=== PATIENT | male | born 1955 | race African-American/Black ===

== ENCOUNTER 2017-09-01 15:11 | Inpatient (IN) | payer OTHER ==
[2017-09-01 15:58] LABS: Mean Corpuscular HGB Conc 33 % (32-34); Mean Corpuscular Hemoglobin 27 pg (28-32); Mean Corpuscular Volume 83 fl (84-94); Platelet Count 645 K/mm3 (140-440); Red Blood Count 2.07 M/mm3 (3.65-5.03); Red Cell Distribution Width 19.5 % (13.2-15.2)
[2017-09-01 16:05] LABS: Hematocrit 17.1 % (35.5-45.6); Hemoglobin 5.6 gm/dl (11.8-15.2)
[2017-09-01 16:08] LABS: INR 0.95 (0.87-1.13)
[2017-09-01 16:09] LABS: Partial Thromboplastin Time 37.7 Sec. (24.2-36.6)
[2017-09-01 16:16] LABS: BUN/Creatinine Ratio 33; Blood Urea Nitrogen 56 mg/dL (9-20); Calcium 9.8 mg/dL (8.4-10.2); Hemolysis Index 0
[2017-09-01 17:10] LABS: Basophils % (Manual) 0 % (0.0-1.8); RBC Morphology Normal; Total Cells Counted 100
--- NOTE | 2017-09-01 17:12 | Emergency Department Report ---
ED Neuro Deficit HPI - General Chief Complaint: Neuro Symptoms/Deficit Stated Complaint: NUMBNESS/LEFT SIDE/VOICE CHANGE Time Seen by Provider: 09/01/17 17:00 Source: patient, family Mode of arrival: Ambulatory Limitations: Language Barrier - History of Present Illness Initial Comments: Patient c/o left sided weakness and numbness x 10 days. -: days(s) (10) Location: left face, left arm, left leg Presenting Symptoms: Present: Weak/Paralyzed One Side History of same: No Place: home Severity: mild Quality: weak, numb Improves With: none Worsens With: none On Anticoagulants: No Context: gradual onset Associated Symptoms: denies other symptoms - Related Data Allergies/Adverse Reactions: Allergies Allergy/AdvReac Type Severity Reaction Status Date / Time No Known Allergies Allergy Unverified 09/01/17 15:15 ED Review of Systems ROS: Stated complaint: NUMBNESS/LEFT SIDE/VOICE CHANGE Other details as noted in HPI Comment: All other systems reviewed and negative Constitutional: denies: chills, fever Eyes: denies: vision change ENT: denies: ear pain, dental pain Respiratory: SOB with exertion. denies: cough Cardiovascular: denies: chest pain, palpitations Endocrine: no symptoms reported Gastrointestinal: denies: abdominal pain, nausea, vomiting, diarrhea Genitourinary: denies: urgency, dysuria, frequency Musculoskeletal: arthralgia. denies: back pain, joint swelling Skin: denies: rash Neurological: weakness, numbness, paresthesias, abnormal gait. denies: headache Psychiatric: denies: anxiety, depression Hematological/Lymphatic: easy bleeding (Nose bleeds intermittently.). denies: easy bruising ED Past Medical Hx - Past Medical History Previous Medical History?: Yes Hx Hypertension: Yes Additional medical history: Epigastric pain, Barretts esophagus, H-pylori - Surgical History Past Surgical History?: No - Social History Smoking Status: Current Every Day Smoker Substance Use Type: Alcohol ED Neuro Physical Exam - General Limitations: Language Barrier General appearance: alert, in no apparent distress Suspected Stroke: Yes - Head Head exam: Present: atraumatic, normocephalic, normal inspection - Eye Eye exam: Present: normal appearance, PERRL, EOMI Pupils: Present: normal accommodation - ENT ENT exam: Present: normal exam, normal orophraynx, mucous membranes moist - Neck Neck exam: Present: normal inspection, full ROM. Absent: tenderness - Respiratory Respiratory exam: Present: normal lung sounds bilaterally. Absent: respiratory distress - Cardiovascular Cardiovascular Exam: Present: regular rate, normal rhythm, normal heart sounds - GI/Abdominal GI/Abdominal exam: Present: soft, normal bowel sounds. Absent: tenderness, guarding, rebound - Rectal Rectal exam: Present: heme (-) stool, other (Female Charperone Ms. Meyers,RN was present in the room during the examination.). Absent: black stool, bloody stool , hemorrhoids, tenderness - Extremities Exam Extremities exam: Present: normal inspection, full ROM, normal capillary refill - Back Exam Back exam: Present: normal inspection, full ROM - Neurological Exam Neurological exam: Present: alert, oriented X3, CN II-XII intact, abnormal gait - NIHSS Assessment Interval: Baseline 1a. Level of Consciousness: alert 1b. LOC Questions: answers correctly 1c. LOC Commands: performs tasks correctly 2. Best Gaze: normal 3. Visual: no visual loss 4. Facial Palsy: normal symmetrical movement 5b. Motor Arm Right: no drift 5a. Motor Arm Left: no drift 6a. Motor Leg Left: no drift 6b. Motor Leg Right: no drift 7. Limb Ataxia: absent 8. Sensory: mild/moderate sensory loss 9. Best Language: no aphasia 10. Dysarthria: normal 11. Extinction/Inattention: no abnormality Total Score: 1 Stroke Severity: Minor Stroke ED Course Vital Signs 09/01/17 09/01/17 09/01/17 15:15 16:21 16:52 Temperature 98.3 F Pulse Rate 116 H 85 Respiratory 18 19 19 Rate Blood Pressure 142/79 Blood Pressure 178/88 [Right] O2 Sat by Pulse 100 100 Oximetry 09/01/17 09/01/17 09/01/17 17:00 18:00 19:00 Temperature Pulse Rate 94 H 92 H 93 H Respiratory 16 18 18 Rate Blood Pressure Blood Pressure 180/95 173/96 167/90 [Right] O2 Sat by Pulse 98 97 97 Oximetry 09/01/17 09/01/17 20:49 20:52 Temperature Pulse Rate 100 H 100 H Respiratory 18 Rate Blood Pressure 167/88 Blood Pressure 167/88 [Right] O2 Sat by Pulse 97 Oximetry - Reevaluation(s) Reevaluation #1: 09/01/17 20:13 I consulted the tele neurogist doctor windows application packager. He recommend admission for full stroke workup including MRI of the brain without contrast. Patient care was discussed with Dr Ballard the hospitalist windows application packager. He will admit patient for further evaluation and management. - Lab Data Result diagrams: 09/01/17 15:34 09/01/17 15:34 Lab Results 09/01/17 09/01/17 09/01/17 Range/Units 15:34 15:34 15:34 WBC 7.5 (4.5-11.0) K/mm3 RBC 2.07 L (3.65-5.03) M/mm3 Hgb 5.6 L* (11.8-15.2) gm/dl Hct 17.1 L* (35.5-45.6) % MCV 83 L (84-94) fl MCH 27 L (28-32) pg MCHC 33 (32-34) % RDW 19.5 H (13.2-15.2) % Plt Count 645 H (140-440) K/mm3 Add Manual Diff Complete Total Counted 100 Seg Neuts % (Manual) 66.0 (40.0-70.0) % Band Neutrophils % 0 % Lymphocytes % (Manual) 17.0 (13.4-35.0) % Reactive Lymphs % (Man) 0 % Monocytes % (Manual) 16.0 H (0.0-7.3) % Eosinophils % (Manual) 1.0 (0.0-4.3) % Basophils % (Manual) 0 (0.0-1.8) % Metamyelocytes % 0 % Myelocytes % 0 % Promyelocytes % 0 % Blast Cells % 0 % Nucleated RBC % Not Reportable Seg Neutrophils # Man 5.0 (1.8-7.7) K/mm3 Band Neutrophils # 0.0 K/mm3 Lymphocytes # (Manual) 1.3 (1.2-5.4) K/mm3 Abs React Lymphs (Man) 0.0 K/mm3 Monocytes # (Manual) 1.2 H (0.0-0.8) K/mm3 Eosinophils # (Manual) 0.1 (0.0-0.4) K/mm3 Basophils # (Manual) 0.0 (0.0-0.1) K/mm3 Metamyelocytes # 0.0 K/mm3 Myelocytes # 0.0 K/mm3 Promyelocytes # 0.0 K/mm3 Blast Cells # 0.0 K/mm3 WBC Morphology Not Reportable Hypersegmented Neuts Not Reportable Hyposegmented Neuts Not Reportable Hypogranular Neuts Not Reportable Smudge Cells Not Reportable Toxic Granulation Not Reportable Toxic Vacuolation Not Reportable Dohle Bodies Not Reportable Pelger-Huet Anomaly Not Reportable Christina Rods Not Reportable Platelet Estimate Not Reportable Clumped Platelets Not Reportable Plt Clumps, EDTA Not Reportable Large Platelets Not Reportable Giant Platelets Not Reportable Platelet Satelliting Not Reportable Plt Morphology Comment Not Reportable RBC Morphology Normal Dimorphic RBCs Not Reportable Polychromasia Not Reportable Hypochromasia Not Reportable Poikilocytosis Not Reportable Anisocytosis Not Reportable Microcytosis Not Reportable Macrocytosis Not Reportable Spherocytes Not Reportable Pappenheimer Bodies Not Reportable Sickle Cells Not Reportable Target Cells Not Reportable Tear Drop Cells Not Reportable Ovalocytes Not Reportable Helmet Cells Not Reportable [place] Bodies Not Reportable [place] Rings Not Reportable Jennifer Cells Not Reportable Bite Cells Not Reportable Crenated Cell Not Reportable Elliptocytes Not Reportable Acanthocytes (Spur) Not Reportable Rouleaux Not Reportable Hemoglobin C Crystals Not Reportable Schistocytes Not Reportable Malaria parasites Not Reportable Bogdan Bodies Not Reportable Hem Pathologist Commnt No PT 13.2 (12.2-14.9) Sec. INR 0.95 (0.87-1.13) APTT 37.7 H (24.2-36.6) Sec. Thrombin Time (15.1-19.6) Sec. Sodium 138 (137-145) mmol/L Potassium 5.1 H (3.6-5.0) mmol/L Chloride 101.3 (98-107) mmol/L Carbon Dioxide 17 L (22-30) mmol/L Anion Gap 25 mmol/L BUN 56 H (9-20) mg/dL Creatinine 1.7 H (0.8-1.5) mg/dL Estimated GFR 41 ml/min BUN/Creatinine Ratio 33 % Glucose 137 H (75-100) mg/dL POC Glucose (70-105) Calcium 9.8 (8.4-10.2) mg/dL Total Bilirubin (0.1-1.2) mg/dL Direct Bilirubin (0-0.2) mg/dL Indirect Bilirubin mg/dL AST (5-40) units/L ALT (7-56) units/L Alkaline Phosphatase (35-129) units/L Troponin T < 0.010 (0.00-0.029) ng/mL Total Protein (6.3-8.2) g/dL Albumin (3.9-5) g/dL Albumin/Globulin Ratio % Blood Type Antibody Screen 09/01/17 09/01/17 09/01/17 Range/Units 15:34 16:39 17:29 WBC (4.5-11.0) K/mm3 RBC (3.65-5.03) M/mm3 Hgb (11.8-15.2) gm/dl Hct (35.5-45.6) % MCV (84-94) fl MCH (28-32) pg MCHC (32-34) % RDW (13.2-15.2) % Plt Count (140-440) K/mm3 Add Manual Diff Total Counted Seg Neuts % (Manual) (40.0-70.0) % Band Neutrophils % % Lymphocytes % (Manual) (13.4-35.0) % Reactive Lymphs % (Man) % Monocytes % (Manual) (0.0-7.3) % Eosinophils % (Manual) (0.0-4.3) % Basophils % (Manual) (0.0-1.8) % Metamyelocytes % % Myelocytes % % Promyelocytes % % Blast Cells % % Nucleated RBC % Seg Neutrophils # Man (1.8-7.7) K/mm3 Band Neutrophils # K/mm3 Lymphocytes # (Manual) (1.2-5.4) K/mm3 Abs React Lymphs (Man) K/mm3 Monocytes # (Manual) (0.0-0.8) K/mm3 Eosinophils # (Manual) (0.0-0.4) K/mm3 Basophils # (Manual) (0.0-0.1) K/mm3 Metamyelocytes # K/mm3 Myelocytes # K/mm3 Promyelocytes # K/mm3 Blast Cells # K/mm3 WBC Morphology Hypersegmented Neuts Hyposegmented Neuts Hypogranular Neuts Smudge Cells Toxic Granulation Toxic Vacuolation Dohle Bodies Pelger-Huet Anomaly Christina Rods Platelet Estimate Clumped Platelets Plt Clumps, EDTA Large Platelets Giant Platelets Platelet Satelliting Plt Morphology Comment RBC Morphology Dimorphic RBCs Polychromasia Hypochromasia Poikilocytosis Anisocytosis Microcytosis Macrocytosis Spherocytes Pappenheimer Bodies Sickle Cells Target Cells Tear Drop Cells Ovalocytes Helmet Cells [place] Bodies [place] Rings Jennifer Cells Bite Cells Crenated Cell Elliptocytes Acanthocytes (Spur) Rouleaux Hemoglobin C Crystals Schistocytes Malaria parasites Bogdan Bodies Hem Pathologist Commnt PT (12.2-14.9) Sec. INR (0.87-1.13) APTT (24.2-36.6) Sec. Thrombin Time 15.0 L (15.1-19.6) Sec. Sodium (137-145) mmol/L Potassium (3.6-5.0) mmol/L Chloride (98-107) mmol/L Carbon Dioxide (22-30) mmol/L Anion Gap mmol/L BUN (9-20) mg/dL Creatinine (0.8-1.5) mg/dL Estimated GFR ml/min BUN/Creatinine Ratio % Glucose (75-100) mg/dL POC Glucose 132 H (70-105) Calcium (8.4-10.2) mg/dL Total Bilirubin < 0.20 (0.1-1.2) mg/dL Direct Bilirubin < 0.2 (0-0.2) mg/dL Indirect Bilirubin 0.0 mg/dL AST 17 (5-40) units/L ALT 10 (7-56) units/L Alkaline Phosphatase 113 (35-129) units/L Troponin T (0.00-0.029) ng/mL Total Protein 7.8 (6.3-8.2) g/dL Albumin 4.0 (3.9-5) g/dL Albumin/Globulin Ratio 1.1 % Blood Type Antibody Screen 09/01/17 Range/Units 17:29 WBC (4.5-11.0) K/mm3 RBC (3.65-5.03) M/mm3 Hgb (11.8-15.2) gm/dl Hct (35.5-45.6) % MCV (84-94) fl MCH (28-32) pg MCHC (32-34) % RDW (13.2-15.2) % Plt Count (140-440) K/mm3 Add Manual Diff Total Counted Seg Neuts % (Manual) (40.0-70.0) % Band Neutrophils % % Lymphocytes % (Manual) (13.4-35.0) % Reactive Lymphs % (Man) % Monocytes % (Manual) (0.0-7.3) % Eosinophils % (Manual) (0.0-4.3) % Basophils % (Manual) (0.0-1.8) % Metamyelocytes % % Myelocytes % % Promyelocytes % % Blast Cells % % Nucleated RBC % Seg Neutrophils # Man (1.8-7.7) K/mm3 Band Neutrophils # K/mm3 Lymphocytes # (Manual) (1.2-5.4) K/mm3 Abs React Lymphs (Man) K/mm3 Monocytes # (Manual) (0.0-0.8) K/mm3 Eosinophils # (Manual) (0.0-0.4) K/mm3 Basophils # (Manual) (0.0-0.1) K/mm3 Metamyelocytes # K/mm3 Myelocytes # K/mm3 Promyelocytes # K/mm3 Blast Cells # K/mm3 WBC Morphology Hypersegmented Neuts Hyposegmented Neuts Hypogranular Neuts Smudge Cells Toxic Granulation Toxic Vacuolation Dohle Bodies Pelger-Huet Anomaly Christina Rods Platelet Estimate Clumped Platelets Plt Clumps, EDTA Large Platelets Giant Platelets Platelet Satelliting Plt Morphology Comment RBC Morphology Dimorphic RBCs Polychromasia Hypochromasia Poikilocytosis Anisocytosis Microcytosis Macrocytosis Spherocytes Pappenheimer Bodies Sickle Cells Target Cells Tear Drop Cells Ovalocytes Helmet Cells [place] Bodies [place] Rings Jennifer Cells Bite Cells Crenated Cell Elliptocytes Acanthocytes (Spur) Rouleaux Hemoglobin C Crystals Schistocytes Malaria parasites Bogdan Bodies Hem Pathologist Commnt PT (12.2-14.9) Sec. INR (0.87-1.13) APTT (24.2-36.6) Sec. Thrombin Time (15.1-19.6) Sec. Sodium (137-145) mmol/L Potassium (3.6-5.0) mmol/L Chloride (98-107) mmol/L Carbon Dioxide (22-30) mmol/L Anion Gap mmol/L BUN (9-20) mg/dL Creatinine (0.8-1.5) mg/dL Estimated GFR ml/min BUN/Creatinine Ratio % Glucose (75-100) mg/dL POC Glucose (70-105) Calcium (8.4-10.2) mg/dL Total Bilirubin (0.1-1.2) mg/dL Direct Bilirubin (0-0.2) mg/dL Indirect Bilirubin mg/dL AST (5-40) units/L ALT (7-56) units/L Alkaline Phosphatase (35-129) units/L Troponin T (0.00-0.029) ng/mL Total Protein (6.3-8.2) g/dL Albumin (3.9-5) g/dL Albumin/Globulin Ratio % Blood Type O POSITIVE Antibody Screen Negative - Radiology Data Radiology results: report reviewed, image reviewed Critical Care Time: Yes Critical care time in (mins) excluding proc time.: 50 Critical care attestation.: If time is entered above; I have spent that time in minutes in the direct care of this critically ill patient, excluding procedure time. ED Disposition Clinical Impression: Symptomatic anemia, Left-sided weakness, Left sided numbness Disposition: OP ADMIT IP TO THIS HOSP Is pt being admited?: Yes Does the pt Need Aspirin: Yes Condition: Stable
--- NOTE | 2017-09-01 17:21 | Cat Scan Report ---
FINAL REPORT PROCEDURE: CT HEAD/BRAIN WO CON TECHNIQUE: Computerized tomography of the head was performed without contrast material. DLP 920.48 mGy-cm. HISTORY: Left arm numbness. Unsteady gait and confusion. COMPARISON: No prior studies are available for comparison. FINDINGS: Skull and scalp: Normal. Paranasal sinuses: Near complete opacification of the right maxillary sinus. Scattered ethmoid sinusitis. Ventricles and subarachnoid spaces: Normal. Cerebrum: No evidence of hemorrhage, acute infarction or mass. Mild atrophy. Subtle periventricular white matter low attenuation. Subcentimeter areas of low attenuation in the bilateral basal ganglia and thalami, right greater than left. Possible subtle more focal area of low attenuation in the right middle cerebral peduncle. Bilateral basal ganglia calcifications. Cerebellum and brainstem: No evidence of hemorrhage, acute infarction or mass. Possible subtle area of low attenuation in the right middle cerebellar peduncle. Vasculature: Mild atherosclerosis. Comments: None. IMPRESSION: Atrophy. White matter changes likely chronic small vessel ischemic change. Areas of low attenuation in the basal ganglia likely lacunes. Subtle area of low attenuation in the right middle cerebellar peduncle. This could be artifact. Recommend MRI of the brain for further characterization if there is continued clinical concern for subtle superimposed acute process (cannot be entirely excluded) and if patient has no contraindication to MRI. Sinusitis, with near complete opacification of the right maxillary sinus.
[2017-09-01 18:22] LABS: Alanine Aminotransferase 10 units/L (7-56)
[2017-09-01 18:30] LABS: Bilirubin,Direct < 0.2 mg/dL (0-0.2)
[2017-09-01] MEDS ORDERED: LOPRESSOR PO ONE (18:55)
--- NOTE | 2017-09-01 19:13 | History and Physical Report ---
History of Present Illness Chief complaint: weakness History of present illness: 61 YO Male with HTN, Malnutrition, Krish's Eshphagus, Nicotine Dependence presents to ED for evaluation. Pt is unable to provide detailed history. History taken from ED staff, and family members at bedside during exam and interview. As per family, the patient has experienced Left side weakness, confusion, slurred speech over the past 10 days with persistent symptoms over the same time frame. No reports of fever, chills, CP, Palpitations, Falls, Trauma, BRBPR, Seizure, productive cough, skin rash, or recent in contacts. Pt seen and evaluated in ED and found to have symptoms of acute stroke. Code stroke was called. Teleneurology consulted. Pt is outside therapeutic window for TPA/ Pt admitted to telemetry and initiates on CVA protocol. Past History Past Medical History: hypertension, other (BArrrets Esophagus) Past Surgical History: No surgical history, Other (reviewed) Social history: single, smoking Family history: hypertension Medications and Allergies Allergies Allergy/AdvReac Type Severity Reaction Status Date / Time No Known Allergies Allergy Unverified 09/01/17 15:15 Review of Systems ROS unobtainable: due to mental status Exam - Constitutional Vitals: Temp Pulse Resp BP Pulse Ox 98.3 F 85 19 178/88 100 09/01/17 15:15 09/01/17 16:21 09/01/17 16:52 09/01/17 16:21 09/01/17 16:21 General appearance: Present: mild distress - EENT Eyes: Present: PERRL ENT: hearing intact, clear oral mucosa - Neck Neck: Present: supple, normal ROM - Respiratory Respiratory effort: normal Respiratory: bilateral: CTA - Cardiovascular Heart Sounds: Present: S1 & S2. Absent: rub, click - Extremities Extremities: pulses symmetrical, No edema Peripheral Pulses: within normal limits - Abdominal General gastrointestinal: Present: soft, non-tender, non-distended, normal bowel sounds Male genitourinary: Present: normal - Integumentary Integumentary: Present: clear, dry, decreased turgor - Musculoskeletal Musculoskeletal: left sided weakness - Psychiatric Psychiatric: no intact judgment & insight, no memory intact - Neurologic Neurologic: focal deficits, no moves all extremities, no gait normal Results - Labs CBC & Chem 7: 09/01/17 15:34 09/01/17 15:34 Labs: Abnormal lab results 09/01/17 09/01/17 09/01/17 Range/Units 15:34 15:34 15:34 RBC 2.07 L (3.65-5.03) M/mm3 Hgb 5.6 L* (11.8-15.2) gm/dl Hct 17.1 L* (35.5-45.6) % MCV 83 L (84-94) fl MCH 27 L (28-32) pg RDW 19.5 H (13.2-15.2) % Plt Count 645 H (140-440) K/mm3 Monocytes % (Manual) 16.0 H (0.0-7.3) % Monocytes # (Manual) 1.2 H (0.0-0.8) K/mm3 APTT 37.7 H (24.2-36.6) Sec. Thrombin Time (15.1-19.6) Sec. Potassium 5.1 H (3.6-5.0) mmol/L Carbon Dioxide 17 L (22-30) mmol/L BUN 56 H (9-20) mg/dL Creatinine 1.7 H (0.8-1.5) mg/dL Glucose 137 H (75-100) mg/dL POC Glucose (70-105) 18 09/01/17 Range/Units 15:34 16:39 RBC (3.65-5.03) M/mm3 Hgb (11.8-15.2) gm/dl Hct (35.5-45.6) % MCV (84-94) fl MCH (28-32) pg RDW (13.2-15.2) % Plt Count (140-440) K/mm3 Monocytes % (Manual) (0.0-7.3) % Monocytes # (Manual) (0.0-0.8) K/mm3 APTT (24.2-36.6) Sec. Thrombin Time 15.0 L (15.1-19.6) Sec. Potassium (3.6-5.0) mmol/L Carbon Dioxide (22-30) mmol/L BUN (9-20) mg/dL Creatinine (0.8-1.5) mg/dL Glucose (75-100) mg/dL POC Glucose 132 H (70-105) Assessment and Plan - Patient Problems (1) CVA (cerebral vascular accident) Current Visit: Yes Status: Acute Qualifiers: Precerebral and cerebral artery: middle cerebral artery Laterality of affected vessel: right Plan to address problem: Stroke protocol: CT head, MRI Brain, MRA Brain, Echo, Carotid Doppler, Antiplatelet therapy, EEG, PT/OT/ Speech therapy, lipid panel (2) Hemiparesis Current Visit: Yes Status: Acute Qualifiers: Hemiparesis laterality: left nondominant side Plan to address problem: PT consulted, supportive care, treat CVA. (3) ARF (acute renal failure) Current Visit: Yes Status: Acute Qualifiers: Acute renal failure type: with acute tubular necrosis Qualified Code(s): N17.0 - Acute kidney failure with tubular necrosis Plan to address problem: IVF resuscitation, monitor uop q shift, monitor serum creatnine. (4) Encephalopathy Current Visit: Yes Status: Acute Plan to address problem: CT Head, Neuro checks, IVF resuscitation, (5) Malnutrition Current Visit: Yes Status: Acute Qualifiers: Protein-calorie malnutrition severity: severe Plan to address problem: Encourage oral intake, protein supplement prn (6) Blood loss anemia Current Visit: Yes Status: Acute Plan to address problem: PRBC transfusion, serial cbc, GI Consulted. (7) DVT prophylaxis Current Visit: Yes Status: Acute
[2017-09-01] MEDS ORDERED: DULCOLAX PR PRN (19:16)
[2017-09-01] MEDS ORDERED: ZOFRAN IV PRN (19:16)
[2017-09-01] MEDS ORDERED: SODIUM CHLORIDE FLUSH SYRINGE 10 ML IV PRN (19:16)
[2017-09-01] MEDS ORDERED: MILK OF MAGNESIA PO PRN (19:16)
[2017-09-01] MEDS ORDERED: TYLENOL PO PRN (19:16)
[2017-09-01] MEDS ORDERED: REGLAN PO PRN (19:16)
[2017-09-01] MEDS ORDERED: PHENERGAN PR PRN (19:16)
[2017-09-01] MEDS ORDERED: LOPRESSOR ONE (20:42)
--- NOTE | 2017-09-01 21:32 | Magnetic Resonance Report ---
FINAL REPORT EXAM: MR BRAIN WO CON HISTORY: Left sided numbness and weakness TECHNIQUE: Multiplanar multisequence noncontrast MR images of the brain were performed Repeat sequences were performed due to motion degradation. Comparison: CT brain same day reporting bilateral basal ganglia low attenuation and along the right middle cerebellar peduncle, right maxillary sinusitis FINDINGS: Near complete opacification of the right maxillary sinus. Fully formed corpus callosum. Unremarkable sella turcica, brainstem, colliculus, and posterior fossa. Mild cortical atrophy. Diffusion-weighted imaging demonstrates right cerebellar peduncle restricted diffusion measuring 1.2 x 1.5 centimeters. No other foci of acute restricted diffusion are identified. Cerebellopontine angles and vestibulocochlear nerve sheath bundles have an unremarkable appearance. There are foci of chronic lacune in the bilateral thalami and the right periventricular white matter. No acute extra-axial fluid collection. No midline shift or mass effect. The imaged intracranial vasculature has normal T2 flow voids. There is anterior ethmoid air cell partial opacification right maxillary sinus opacification. Orbital cones and apices are within normal limits. Optic chiasm is midline. Infundibulum is not displaced. IMPRESSION: 1.2 x 1.5 centimeter right middle cerebellar peduncle acute nonhemorrhagic infarct. No associated cerebellar hemisphere infarct. Sinusitis. No other acute finding. Critical level 1 result. Called on 09/01/2017 at 2126 hours.
--- NOTE | 2017-09-01 22:08 | Magnetic Resonance Report ---
FINAL REPORT PROCEDURE: MR MRA/MRV HEAD WO CON TECHNIQUE: Axial 3-D [id number] MR angiography of the [place] and brain was performed. The source images were reconstructed in various views using maximum intensity projection. HISTORY: stroke COMPARISON: No prior studies are available for comparison. FINDINGS: Vertebral arteries: There is no flow seen in the right distal vertebral artery. Dominant left vertebral artery. Basilar artery: Normal. Internal carotid arteries: Diminished signal in the cavernous left internal carotid artery with narrowing versus artifact. Anterior cerebral arteries: Hypoplastic A1 segment. Middle cerebral arteries: Normal. Posterior cerebral arteries: Normal. Branch occlusions: None. Vascular malformations: None. IMPRESSION: Diminished flow the left internal carotid artery with artifact versus narrowing. No occlusion. Dominant left vertebral artery and no flow seen in the right distal vertebral artery
[2017-09-01] MEDS: BABY ASPIRIN PO SCH (22:51)
[2017-09-02] MEDS ORDERED: NACL 0.9% 500 ML 500 ML IV ONE ×2 (01:16→03:25)
[2017-09-02] MEDS ORDERED: NACL 0.9% 250ML 250 ML ONE (01:24)
[2017-09-02] MEDS ORDERED: ASPIRIN PO SCH (10:00)
--- NOTE | 2017-09-02 11:06 | Gastroenterology Consultation ---
<MAC ENGLISH CLARITA - Last Filed: 09/02/17 11:00> History of Present Illness - Reason for Consult Consult date: 09/02/17 anemia Requesting physician: ANUPAM PETERSON - History of Present Illness Mr. Cortez is a 61 y/o male admitted with reports of 10 days of weakness, left sided weakness and slurred speech. On admission, pt found by MRI to have acute CVA. Neurology has been consulted and CVAS workup in progress. He was found to have an H/H of 5.6/17.1. He denies melena or hematochzia,no N/V. Heme negative stool by ED MD report. He is currently receiving blood. Of note , pt recently seen by Dr. Paul for colon screening and anemia. He underwent EGD and colonoscopy in 05/2017 ( notes in plan) and was taking Omeprazole daily. He does note having intermittent abdominal pain. Past History Past Medical History: hypertension, other (BArrrets Esophagus) Past Surgical History: No surgical history, Other (reviewed) Social history: single, smoking Family history: hypertension Medications and Allergies Allergies Allergy/AdvReac Type Severity Reaction Status Date / Time No Known Allergies Allergy Unverified 09/01/17 15:15 Active Meds: Active Medications Acetaminophen (Tylenol) 650 mg PO Q4H PRN PRN Reason: Pain, Mild (1-3) Aspirin (Baby Aspirin) 81 mg PO QDAY [facility] Last Admin: 09/01/17 22:51 Dose: 81 mg Atorvastatin Calcium (Lipitor) 40 mg PO QHS [facility] Last Admin: 09/01/17 22:51 Dose: 40 mg Bisacodyl (Dulcolax) 10 mg SD QDAY PRN PRN Reason: Constipation Magnesium Hydroxide (Milk Of Magnesia) 30 ml PO Q4H PRN PRN Reason: Constipation Last Admin: 09/02/17 01:11 Dose: 30 ml Metoclopramide HCl (Reglan) 10 mg PO Q6H PRN PRN Reason: Nausea And Vomiting Ondansetron HCl (Zofran) 4 mg IV Q8H PRN PRN Reason: N/V unrelieved by Reglan Last Admin: 09/02/17 01:08 Dose: 4 mg Promethazine HCl (Phenergan) 25 mg SD Q6H PRN PRN Reason: Nausea And Vomiting Sodium Chloride (Sodium Chloride Flush Syringe 10 Ml) 10 ml IV PRN PRN PRN Reason: LINE FLUSH Last Admin: 09/02/17 01:12 Dose: 10 ml Review of Systems - Review of Systems Constitutional: weight loss, fatigue, weakness Gastrointestinal: abdominal pain Neurological: weakness Exam - Constitutional Vital Signs: Temp Pulse Resp BP Pulse Ox 97.8 F 71 18 126/68 100 09/02/17 08:57 09/02/17 08:57 09/02/17 08:57 09/02/17 08:57 09/02/17 08:57 General appearance: no acute distress - EENT Eyes: EOM intact ENT: hearing intact - Neck Neck: supple - Respiratory Respiratory: bilateral: CTA - Cardiovascular Rhythm: regular Heart Sounds: Present: S1 & S2 Extremities: pulses intact - Gastrointestinal General gastrointestinal: Present: soft, tender, normal bowel sounds - Integumentary Integumentary: Present: warm, dry - Neurologic Neurological: alert and oriented x3 - Psychiatric Psychiatric: appropriate mood/affect, cooperative - Labs CBC & Chem 7: 09/01/17 15:34 09/01/17 15:34 Lab Results: Laboratory Results - last 24 hr 09/01/17 09/01/17 09/01/17 15:34 15:34 15:34 WBC 7.5 RBC 2.07 L Hgb 5.6 L* Hct 17.1 L* MCV 83 L MCH 27 L MCHC 33 RDW 19.5 H Plt Count 645 H Add Manual Diff Complete Total Counted 100 Seg Neuts % (Manual) 66.0 Band Neutrophils % 0 Lymphocytes % (Manual) 17.0 Reactive Lymphs % (Man) 0 Monocytes % (Manual) 16.0 H Eosinophils % (Manual) 1.0 Basophils % (Manual) 0 Metamyelocytes % 0 Myelocytes % 0 Promyelocytes % 0 Blast Cells % 0 Nucleated RBC % Not Reportable Seg Neutrophils # Man 5.0 Band Neutrophils # 0.0 Lymphocytes # (Manual) 1.3 Abs React Lymphs (Man) 0.0 Monocytes # (Manual) 1.2 H Eosinophils # (Manual) 0.1 Basophils # (Manual) 0.0 Metamyelocytes # 0.0 Myelocytes # 0.0 Promyelocytes # 0.0 Blast Cells # 0.0 WBC Morphology Not Reportable Hypersegmented Neuts Not Reportable Hyposegmented Neuts Not Reportable Hypogranular Neuts Not Reportable Smudge Cells Not Reportable Toxic Granulation Not Reportable Toxic Vacuolation Not Reportable Dohle Bodies Not Reportable Pelger-Huet Anomaly Not Reportable Christina Rods Not Reportable Platelet Estimate Not Reportable Clumped Platelets Not Reportable Plt Clumps, EDTA Not Reportable Large Platelets Not Reportable Giant Platelets Not Reportable Platelet Satelliting Not Reportable Plt Morphology Comment Not Reportable RBC Morphology Normal Dimorphic RBCs Not Reportable Polychromasia Not Reportable Hypochromasia Not Reportable Poikilocytosis Not Reportable Anisocytosis Not Reportable Microcytosis Not Reportable Macrocytosis Not Reportable Spherocytes Not Reportable Pappenheimer Bodies Not Reportable Sickle Cells Not Reportable Target Cells Not Reportable Tear Drop Cells Not Reportable Ovalocytes Not Reportable Helmet Cells Not Reportable [place] Bodies Not Reportable [place] Rings Not Reportable [place] Cells Not Reportable Bite Cells Not Reportable Crenated Cell Not Reportable Elliptocytes Not Reportable Acanthocytes (Spur) Not Reportable Rouleaux Not Reportable Hemoglobin C Crystals Not Reportable Schistocytes Not Reportable Malaria parasites Not Reportable Bogdan Bodies Not Reportable Hem Pathologist Commnt No PT 13.2 INR 0.95 APTT 37.7 H Thrombin Time Sodium 138 Potassium 5.1 H Chloride 101.3 Carbon Dioxide 17 L Anion Gap 25 BUN 56 H Creatinine 1.7 H Estimated GFR 41 BUN/Creatinine Ratio 33 Glucose 137 H POC Glucose Calcium 9.8 Total Bilirubin Direct Bilirubin Indirect Bilirubin AST ALT Alkaline Phosphatase Troponin T < 0.010 Total Protein Albumin Albumin/Globulin Ratio Blood Type Antibody Screen Crossmatch 09/01/17 09/01/17 09/01/17 15:34 16:39 17:29 WBC RBC Hgb Hct MCV MCH MCHC RDW Plt Count Add Manual Diff Total Counted Seg Neuts % (Manual) Band Neutrophils % Lymphocytes % (Manual) Reactive Lymphs % (Man) Monocytes % (Manual) Eosinophils % (Manual) Basophils % (Manual) Metamyelocytes % Myelocytes % Promyelocytes % Blast Cells % Nucleated RBC % Seg Neutrophils # Man Band Neutrophils # Lymphocytes # (Manual) Abs React Lymphs (Man) Monocytes # (Manual) Eosinophils # (Manual) Basophils # (Manual) Metamyelocytes # Myelocytes # Promyelocytes # Blast Cells # WBC Morphology Hypersegmented Neuts Hyposegmented Neuts Hypogranular Neuts Smudge Cells Toxic Granulation Toxic Vacuolation Dohle Bodies Pelger-Huet Anomaly Christina Rods Platelet Estimate Clumped Platelets Plt Clumps, EDTA Large Platelets Giant Platelets Platelet Satelliting Plt Morphology Comment RBC Morphology Dimorphic RBCs Polychromasia Hypochromasia Poikilocytosis Anisocytosis Microcytosis Macrocytosis Spherocytes Pappenheimer Bodies Sickle Cells Target Cells Tear Drop Cells Ovalocytes Helmet Cells [place] Bodies [place] Rings [place] Cells Bite Cells Crenated Cell Elliptocytes Acanthocytes (Spur) Rouleaux Hemoglobin C Crystals Schistocytes Malaria parasites Bogdan Bodies Hem Pathologist Commnt PT INR APTT Thrombin Time 15.0 L Sodium Potassium Chloride Carbon Dioxide Anion Gap BUN Creatinine Estimated GFR BUN/Creatinine Ratio Glucose POC Glucose 132 H Calcium Total Bilirubin < 0.20 Direct Bilirubin < 0.2 Indirect Bilirubin 0.0 AST 17 ALT 10 Alkaline Phosphatase 113 Troponin T Total Protein 7.8 Albumin 4.0 Albumin/Globulin Ratio 1.1 Blood Type Antibody Screen Crossmatch 09/01/17 17:29 WBC RBC Hgb Hct MCV MCH MCHC RDW Plt Count Add Manual Diff Total Counted Seg Neuts % (Manual) Band Neutrophils % Lymphocytes % (Manual) Reactive Lymphs % (Man) Monocytes % (Manual) Eosinophils % (Manual) Basophils % (Manual) Metamyelocytes % Myelocytes % Promyelocytes % Blast Cells % Nucleated RBC % Seg Neutrophils # Man Band Neutrophils # Lymphocytes # (Manual) Abs React Lymphs (Man) Monocytes # (Manual) Eosinophils # (Manual) Basophils # (Manual) Metamyelocytes # Myelocytes # Promyelocytes # Blast Cells # WBC Morphology Hypersegmented Neuts Hyposegmented Neuts Hypogranular Neuts Smudge Cells Toxic Granulation Toxic Vacuolation Dohle Bodies Pelger-Huet Anomaly Christina Rods Platelet Estimate Clumped Platelets Plt Clumps, EDTA Large Platelets Giant Platelets Platelet Satelliting Plt Morphology Comment RBC Morphology Dimorphic RBCs Polychromasia Hypochromasia Poikilocytosis Anisocytosis Microcytosis Macrocytosis Spherocytes Pappenheimer Bodies Sickle Cells Target Cells Tear Drop Cells Ovalocytes Helmet Cells [place] Bodies [place] Rings [place] Cells Bite Cells Crenated Cell Elliptocytes Acanthocytes (Spur) Rouleaux Hemoglobin C Crystals Schistocytes Malaria parasites Bogdan Bodies Hem Pathologist Commnt PT INR APTT Thrombin Time Sodium Potassium Chloride Carbon Dioxide Anion Gap BUN Creatinine Estimated GFR BUN/Creatinine Ratio Glucose POC Glucose Calcium Total Bilirubin Direct Bilirubin Indirect Bilirubin AST ALT Alkaline Phosphatase Troponin T Total Protein Albumin Albumin/Globulin Ratio Blood Type O POSITIVE Antibody Screen Negative Crossmatch See Detail Assessment and Plan 1. CVA 2. Severe Anemia -CVA workup still in progress. MRI confirms, non-hemorrhagic right middle cerebellar infarct. - Agree with PRBC. - Recheck H/H post transfusion -Pt seen in 05/[address] Paul and underwent screening colonoscopy and EGD that revealed single cratered antral ulcer, nonbleeding, path pending. Pt is also being evaluated for Britton's esophagus. Pt was started on Carafate and Omeprazole with recommendation of repeat EGD in 2 months. -Heme negative stool in ED. May need to consider repeat EGD if continues to have dropping H/H. -WIll need to have pt evaluated by neuro for acute CVA. -Continue PPI <CECELIA JACOB - Last Filed: 09/02/17 15:24> Medications and Allergies Active Meds: Active Medications Acetaminophen (Tylenol) 650 mg PO Q4H PRN PRN Reason: Pain, Mild (1-3) Aspirin (Baby Aspirin) 81 mg PO QDAY [facility] Last Admin: 09/01/17 22:51 Dose: 81 mg Atorvastatin Calcium (Lipitor) 40 mg PO QHS [facility] Last Admin: 09/01/17 22:51 Dose: 40 mg Bisacodyl (Dulcolax) 10 mg SD QDAY PRN PRN Reason: Constipation Magnesium Hydroxide (Milk Of Magnesia) 30 ml PO Q4H PRN PRN Reason: Constipation Last Admin: 09/02/17 01:11 Dose: 30 ml Metoclopramide HCl (Reglan) 10 mg PO Q6H PRN PRN Reason: Nausea And Vomiting Ondansetron HCl (Zofran) 4 mg IV Q8H PRN PRN Reason: N/V unrelieved by Reglan Last Admin: 09/02/17 01:08 Dose: 4 mg Pantoprazole Sodium (Protonix) 40 mg IV BID [facility] Promethazine HCl (Phenergan) 25 mg SD Q6H PRN PRN Reason: Nausea And Vomiting Sodium Chloride (Sodium Chloride Flush Syringe 10 Ml) 10 ml IV PRN PRN PRN Reason: LINE FLUSH Last Admin: 09/02/17 01:12 Dose: 10 ml Exam - Constitutional Vital Signs: Temp Pulse Resp BP Pulse Ox 98.1 F 81 18 133/72 100 09/02/17 11:58 09/02/17 11:58 09/02/17 11:58 09/02/17 11:58 09/02/17 11:58 - Labs CBC & Chem 7: 09/02/17 13:41 09/01/17 15:34 Lab Results: Laboratory Results - last 24 hr 09/01/17 09/01/17 09/01/17 15:34 15:34 15:34 WBC 7.5 RBC 2.07 L Hgb 5.6 L* Hct 17.1 L* MCV 83 L MCH 27 L MCHC 33 RDW 19.5 H Plt Count 645 H Add Manual Diff Complete Total Counted 100 Seg Neuts % (Manual) 66.0 Band Neutrophils % 0 Lymphocytes % (Manual) 17.0 Reactive Lymphs % (Man) 0 Monocytes % (Manual) 16.0 H Eosinophils % (Manual) 1.0 Basophils % (Manual) 0 Metamyelocytes % 0 Myelocytes % 0 Promyelocytes % 0 Blast Cells % 0 Nucleated RBC % Not Reportable Seg Neutrophils # Man 5.0 Band Neutrophils # 0.0 Lymphocytes # (Manual) 1.3 Abs React Lymphs (Man) 0.0 Monocytes # (Manual) 1.2 H Eosinophils # (Manual) 0.1 Basophils # (Manual) 0.0 Metamyelocytes # 0.0 Myelocytes # 0.0 Promyelocytes # 0.0 Blast Cells # 0.0 WBC Morphology Not Reportable Hypersegmented Neuts Not Reportable Hyposegmented Neuts Not Reportable Hypogranular Neuts Not Reportable Smudge Cells Not Reportable Toxic Granulation Not Reportable Toxic Vacuolation Not Reportable Dohle Bodies Not Reportable Pelger-Huet Anomaly Not Reportable Christina Rods Not Reportable Platelet Estimate Not Reportable Clumped Platelets Not Reportable Plt Clumps, EDTA Not Reportable Large Platelets Not Reportable Giant Platelets Not Reportable Platelet Satelliting Not Reportable Plt Morphology Comment Not Reportable RBC Morphology Normal Dimorphic RBCs Not Reportable Polychromasia Not Reportable Hypochromasia Not Reportable Poikilocytosis Not Reportable Anisocytosis Not Reportable Microcytosis Not Reportable Macrocytosis Not Reportable Spherocytes Not Reportable Pappenheimer Bodies Not Reportable Sickle Cells Not Reportable Target Cells Not Reportable Tear Drop Cells Not Reportable Ovalocytes Not Reportable Helmet Cells Not Reportable [place] Bodies Not Reportable [place] Rings Not Reportable [place] Cells Not Reportable Bite Cells Not Reportable Crenated Cell Not Reportable Elliptocytes Not Reportable Acanthocytes (Spur) Not Reportable Rouleaux Not Reportable Hemoglobin C Crystals Not Reportable Schistocytes Not Reportable Malaria parasites Not Reportable Bogdan Bodies Not Reportable Hem Pathologist Commnt No PT 13.2 INR 0.95 APTT 37.7 H Thrombin Time Sodium 138 Potassium 5.1 H Chloride 101.3 Carbon Dioxide 17 L Anion Gap 25 BUN 56 H Creatinine 1.7 H Estimated GFR 41 BUN/Creatinine Ratio 33 Glucose 137 H POC Glucose Calcium 9.8 Total Bilirubin Direct Bilirubin Indirect Bilirubin AST ALT Alkaline Phosphatase Troponin T < 0.010 Total Protein Albumin Albumin/Globulin Ratio Triglycerides Cholesterol LDL Cholesterol Direct HDL Cholesterol Cholesterol/HDL Ratio Blood Type Antibody Screen Crossmatch 09/01/17 09/01/17 09/01/17 15:34 16:39 17:29 WBC RBC Hgb Hct MCV MCH MCHC RDW Plt Count Add Manual Diff Total Counted Seg Neuts % (Manual) Band Neutrophils % Lymphocytes % (Manual) Reactive Lymphs % (Man) Monocytes % (Manual) Eosinophils % (Manual) Basophils % (Manual) Metamyelocytes % Myelocytes % Promyelocytes % Blast Cells % Nucleated RBC % Seg Neutrophils # Man Band Neutrophils # Lymphocytes # (Manual) Abs React Lymphs (Man) Monocytes # (Manual) Eosinophils # (Manual) Basophils # (Manual) Metamyelocytes # Myelocytes # Promyelocytes # Blast Cells # WBC Morphology Hypersegmented Neuts Hyposegmented Neuts Hypogranular Neuts Smudge Cells Toxic Granulation Toxic Vacuolation Dohle Bodies Pelger-Huet Anomaly Christina Rods Platelet Estimate Clumped Platelets Plt Clumps, EDTA Large Platelets Giant Platelets Platelet Satelliting Plt Morphology Comment RBC Morphology Dimorphic RBCs Polychromasia Hypochromasia Poikilocytosis Anisocytosis Microcytosis Macrocytosis Spherocytes Pappenheimer Bodies Sickle Cells Target Cells Tear Drop Cells Ovalocytes Helmet Cells [place] Bodies [place] Rings [place] Cells Bite Cells Crenated Cell Elliptocytes Acanthocytes (Spur) Rouleaux Hemoglobin C Crystals Schistocytes Malaria parasites Bogdan Bodies Hem Pathologist Commnt PT INR APTT Thrombin Time 15.0 L Sodium Potassium Chloride Carbon Dioxide Anion Gap BUN Creatinine Estimated GFR BUN/Creatinine Ratio Glucose POC Glucose 132 H Calcium Total Bilirubin < 0.20 Direct Bilirubin < 0.2 Indirect Bilirubin 0.0 AST 17 ALT 10 Alkaline Phosphatase 113 Troponin T Total Protein 7.8 Albumin 4.0 Albumin/Globulin Ratio 1.1 Triglycerides Cholesterol LDL Cholesterol Direct HDL Cholesterol Cholesterol/HDL Ratio Blood Type Antibody Screen Crossmatch 09/01/17 09/02/17 09/02/17 17:29 13:41 13:41 WBC 6.5 RBC 3.39 L Hgb 9.5 L D Hct 27.8 L D MCV 82 L MCH 28 MCHC 34 RDW 17.9 H Plt Count 616 H Add Manual Diff Total Counted Seg Neuts % (Manual) Band Neutrophils % Lymphocytes % (Manual) Reactive Lymphs % (Man) Monocytes % (Manual) Eosinophils % (Manual) Basophils % (Manual) Metamyelocytes % Myelocytes % Promyelocytes % Blast Cells % Nucleated RBC % Seg Neutrophils # Man Band Neutrophils # Lymphocytes # (Manual) Abs React Lymphs (Man) Monocytes # (Manual) Eosinophils # (Manual) Basophils # (Manual) Metamyelocytes # Myelocytes # Promyelocytes # Blast Cells # WBC Morphology Hypersegmented Neuts Hyposegmented Neuts Hypogranular Neuts Smudge Cells Toxic Granulation Toxic Vacuolation Dohle Bodies Pelger-Huet Anomaly Christina Rods Platelet Estimate Clumped Platelets Plt Clumps, EDTA Large Platelets Giant Platelets Platelet Satelliting Plt Morphology Comment RBC Morphology Dimorphic RBCs Polychromasia Hypochromasia Poikilocytosis Anisocytosis Microcytosis Macrocytosis Spherocytes Pappenheimer Bodies Sickle Cells Target Cells Tear Drop Cells Ovalocytes Helmet Cells [place] Bodies [place] Rings [place] Cells Bite Cells Crenated Cell Elliptocytes Acanthocytes (Spur) Rouleaux Hemoglobin C Crystals Schistocytes Malaria parasites Bogdan Bodies Hem Pathologist Commnt PT INR APTT Thrombin Time Sodium Potassium Chloride Carbon Dioxide Anion Gap BUN Creatinine Estimated GFR BUN/Creatinine Ratio Glucose POC Glucose Calcium Total Bilirubin Direct Bilirubin Indirect Bilirubin AST ALT Alkaline Phosphatase Troponin T Total Protein Albumin Albumin/Globulin Ratio Triglycerides 374 H Cholesterol 164 LDL Cholesterol Direct 91 HDL Cholesterol 28 L Cholesterol/HDL Ratio 5.85 Blood Type O POSITIVE Antibody Screen Negative Crossmatch See Detail Assessment and Plan - Patient Problems (1) Gastric ulcer Current Visit: Yes Status: Acute Plan to address problem: The patient will EGD to exclude neoplasia, ideally prior to discharge, if cleared medically. Will follow
[2017-09-02 14:03] LABS: Hematocrit 27.8 % (35.5-45.6); Hemoglobin 9.5 gm/dl (11.8-15.2); Mean Corpuscular HGB Conc 34 % (32-34); Mean Corpuscular Hemoglobin 28 pg (28-32); Mean Corpuscular Volume 82 fl (84-94); Platelet Count 616 K/mm3 (140-440); Red Blood Count 3.39 M/mm3 (3.65-5.03); Red Cell Distribution Width 17.9 % (13.2-15.2)
[2017-09-02 14:21] LABS: Chol/HDL Ratio 5.85 %
[2017-09-02] MEDS: BABY ASPIRIN PO SCH (16:21)
[2017-09-02] MEDS: PROTONIX IV SCH ×2 (16:21→23:14)
--- NOTE | 2017-09-02 17:00 | Progress Note ---
Hospitalist Physical - Constitutional Vitals: Temp Pulse Resp BP Pulse Ox 98.1 F 81 18 133/72 100 09/02/17 11:58 09/02/17 11:58 09/02/17 11:58 09/02/17 11:58 09/02/17 11:58 General appearance: Present: mild distress Results - Labs CBC & Chem 7: 09/02/17 13:41 09/01/17 15:34 Labs: Laboratory Last Values WBC 6.5 K/mm3 (4.5-11.0) 09/02/17 13:41 RBC 3.39 M/mm3 (3.65-5.03) L 09/02/17 13:41 Hgb 9.5 gm/dl (11.8-15.2) L D 09/02/17 13:41 Hct 27.8 % (35.5-45.6) L D 09/02/17 13:41 MCV 82 fl (84-94) L 09/02/17 13:41 MCH 28 pg (28-32) 09/02/17 13:41 MCHC 34 % (32-34) 09/02/17 13:41 RDW 17.9 % (13.2-15.2) H 09/02/17 13:41 Plt Count 616 K/mm3 (140-440) H 09/02/17 13:41 Add Manual Diff Complete 09/01/17 15:34 Total Counted 100 09/01/17 15:34 Seg Neuts % (Manual) 66.0 % (40.0-70.0) 09/01/17 15:34 Band Neutrophils % 0 % 09/01/17 15:34 Lymphocytes % (Manual) 17.0 % (13.4-35.0) 09/01/17 15:34 Reactive Lymphs % (Man) 0 % 09/01/17 15:34 Monocytes % (Manual) 16.0 % (0.0-7.3) H 09/01/17 15:34 Eosinophils % (Manual) 1.0 % (0.0-4.3) 09/01/17 15:34 Basophils % (Manual) 0 % (0.0-1.8) 09/01/17 15:34 Metamyelocytes % 0 % 09/01/17 15:34 Myelocytes % 0 % 09/01/17 15:34 Promyelocytes % 0 % 09/01/17 15:34 Blast Cells % 0 % 09/01/17 15:34 Nucleated RBC % Not Reportable 09/01/17 15:34 Seg Neutrophils # Man 5.0 K/mm3 (1.8-7.7) 09/01/17 15:34 Band Neutrophils # 0.0 K/mm3 09/01/17 15:34 Lymphocytes # (Manual) 1.3 K/mm3 (1.2-5.4) 09/01/17 15:34 Abs React Lymphs (Man) 0.0 K/mm3 09/01/17 15:34 Monocytes # (Manual) 1.2 K/mm3 (0.0-0.8) H 09/01/17 15:34 Eosinophils # (Manual) 0.1 K/mm3 (0.0-0.4) 09/01/17 15:34 Basophils # (Manual) 0.0 K/mm3 (0.0-0.1) 09/01/17 15:34 Metamyelocytes # 0.0 K/mm3 09/01/17 15:34 Myelocytes # 0.0 K/mm3 09/01/17 15:34 Promyelocytes # 0.0 K/mm3 09/01/17 15:34 Blast Cells # 0.0 K/mm3 09/01/17 15:34 WBC Morphology Not Reportable 09/01/17 15:34 Hypersegmented Neuts Not Reportable 09/01/17 15:34 Hyposegmented Neuts Not Reportable 09/01/17 15:34 Hypogranular Neuts Not Reportable 09/01/17 15:34 Smudge Cells Not Reportable 09/01/17 15:34 Toxic Granulation Not Reportable 09/01/17 15:34 Toxic Vacuolation Not Reportable 09/01/17 15:34 Dohle Bodies Not Reportable 09/01/17 15:34 Pelger-Huet Anomaly Not Reportable 09/01/17 15:34 Christina Rods Not Reportable 09/01/17 15:34 Platelet Estimate Not Reportable 09/01/17 15:34 Clumped Platelets Not Reportable 09/01/17 15:34 Plt Clumps, EDTA Not Reportable 09/01/17 15:34 Large Platelets Not Reportable 09/01/17 15:34 Giant Platelets Not Reportable 09/01/17 15:34 Platelet Satelliting Not Reportable 09/01/17 15:34 Plt Morphology Comment Not Reportable 09/01/17 15:34 RBC Morphology Normal 09/01/17 15:34 Dimorphic RBCs Not Reportable 09/01/17 15:34 Polychromasia Not Reportable 09/01/17 15:34 Hypochromasia Not Reportable 09/01/17 15:34 Poikilocytosis Not Reportable 09/01/17 15:34 Anisocytosis Not Reportable 09/01/17 15:34 Microcytosis Not Reportable 09/01/17 15:34 Macrocytosis Not Reportable 09/01/17 15:34 Spherocytes Not Reportable 09/01/17 15:34 Pappenheimer Bodies Not Reportable 09/01/17 15:34 Sickle Cells Not Reportable 09/01/17 15:34 Target Cells Not Reportable 09/01/17 15:34 Tear Drop Cells Not Reportable 09/01/17 15:34 Ovalocytes Not Reportable 09/01/17 15:34 Helmet Cells Not Reportable 09/01/17 15:34 [place] Bodies Not Reportable 09/01/17 15:34 [place] Rings Not Reportable 09/01/17 15:34 [place] Cells Not Reportable 09/01/17 15:34 Bite Cells Not Reportable 09/01/17 15:34 Crenated Cell Not Reportable 09/01/17 15:34 Elliptocytes Not Reportable 09/01/17 15:34 Acanthocytes (Spur) Not Reportable 09/01/17 15:34 Rouleaux Not Reportable 09/01/17 15:34 Hemoglobin C Crystals Not Reportable 09/01/17 15:34 Schistocytes Not Reportable 09/01/17 15:34 Malaria parasites Not Reportable 09/01/17 15:34 Bogdan Bodies Not Reportable 09/01/17 15:34 Hem Pathologist Commnt No 09/01/17 15:34 PT 13.2 Sec. (12.2-14.9) 09/01/17 15:34 INR 0.95 (0.87-1.13) 09/01/17 15:34 APTT 37.7 Sec. (24.2-36.6) H 09/01/17 15:34 Thrombin Time 15.0 Sec. (15.1-19.6) L 09/01/17 15:34 Sodium 138 mmol/L (137-145) 09/01/17 15:34 Potassium 5.1 mmol/L (3.6-5.0) H 09/01/17 15:34 Chloride 101.3 mmol/L (98-107) 09/01/17 15:34 Carbon Dioxide 17 mmol/L (22-30) L 09/01/17 15:34 Anion Gap 25 mmol/L 09/01/17 15:34 BUN 56 mg/dL (9-20) H 09/01/17 15:34 Creatinine 1.7 mg/dL (0.8-1.5) H 09/01/17 15:34 Estimated GFR 41 ml/min 09/01/17 15:34 BUN/Creatinine Ratio 33 % 09/01/17 15:34 Glucose 137 mg/dL (75-100) H 09/01/17 15:34 POC Glucose 132 (70-105) H 09/01/17 16:39 Calcium 9.8 mg/dL (8.4-10.2) 09/01/17 15:34 Total Bilirubin < 0.20 mg/dL (0.1-1.2) 09/01/17 17:29 Direct Bilirubin < 0.2 mg/dL (0-0.2) 09/01/17 17:29 Indirect Bilirubin 0.0 mg/dL 09/01/17 17:29 AST 17 units/L (5-40) 09/01/17 17:29 ALT 10 units/L (7-56) 09/01/17 17:29 Alkaline Phosphatase 113 units/L (35-129) 09/01/17 17:29 Troponin T < 0.010 ng/mL (0.00-0.029) 09/01/17 15:34 Total Protein 7.8 g/dL (6.3-8.2) 09/01/17 17:29 Albumin 4.0 g/dL (3.9-5) 09/01/17 17:29 Albumin/Globulin Ratio 1.1 % 09/01/17 17:29 Triglycerides 374 mg/dL (2-149) H 09/02/17 13:41 Cholesterol 164 mg/dL (50-199) 09/02/17 13:41 LDL Cholesterol Direct 91 mg/dL (50-130) 09/02/17 13:41 HDL Cholesterol 28 mg/dL (40-59) L 09/02/17 13:41 Cholesterol/HDL Ratio 5.85 % 09/02/17 13:41 Blood Type O POSITIVE 09/01/17 17:29 Antibody Screen Negative 09/01/17 17:29 Crossmatch See Detail 09/01/17 17:29
[2017-09-02] MEDS ORDERED: APRESOLINE IV PRN (18:20)
--- NOTE | 2017-09-02 18:27 | Progress Note ---
Assessment and Plan Assessment and plan: 61 YO Male with HTN, Malnutrition, Krish's Eshphagus, Nicotine Dependence presents to ED for evaluation. Pt is unable to provide detailed history. History taken from ED staff, and family members at bedside during exam and interview. As per family, the patient has experienced Left side weakness, confusion, slurred speech over the past 10 days with persistent symptoms over the same time frame. No reports of fever, chills, CP, Palpitations, Falls, Trauma, BRBPR, Seizure, productive cough, skin rash, or recent in contacts. Pt seen and evaluated in ED and found to have symptoms of acute stroke. Code stroke was called. Teleneurology consulted. Pt is outside therapeutic window for TPA/ Pt admitted to telemetry and initiates on CVA protocol. Acute CVA - MRI right medial cerebellar peduncle acute infarct - Patient is on aspirin and statin Severe anemia - Patient was transfused with 2 units of blood - We'll follow H&H - GI consulted - And was evaluated by gastroenterology as an outpatient and had history of ulcer and was on omeprazole - Currently on IV PPI Hypertension - Permissive hypertension - We'll give hydralazine when necessary when it is greater than 175/115 JUSTINA - We'll monitor closely PT/OT evaluation Speech therapy evaluation DVT prophylaxis Disposition - Continue inpatient care History Interval history: Patient was seen and evaluated this morning, patient has mild left-sided UE weakness. Hospitalist Physical - Physical exam Narrative exam: Not in cardiopulmonary distress. The patient appeared well nourished and normally developed. Vital signs as documented. Head exam is unremarkable. No scleral icterus . Neck is without jugular venous distension, thyromegaly, or carotid bruits. Lungs are clear to auscultation. Cardiac exam reveals regular rate and Rhythm. First and second heart sounds normal. No murmurs, rubs or gallops. Abdominal exam reveals normal bowel sounds, no masses, no organomegaly and no aortic enlargement. Extremities are nonedematous and both femoral and pedal pulses are normal. 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 Mild left upper extremity weakness - Constitutional Vitals: Temp Pulse Resp BP Pulse Ox 97.7 F 74 18 175/84 99 09/02/17 16:00 09/02/17 16:00 09/02/17 16:00 09/02/17 16:00 09/02/17 16:00 General appearance: Present: mild distress Results - Labs CBC & Chem 7: 09/02/17 13:41 09/01/17 15:34 Labs: Laboratory Last Values WBC 6.5 K/mm3 (4.5-11.0) 09/02/17 13:41 RBC 3.39 M/mm3 (3.65-5.03) L 09/02/17 13:41 Hgb 9.5 gm/dl (11.8-15.2) L D 09/02/17 13:41 Hct 27.8 % (35.5-45.6) L D 09/02/17 13:41 MCV 82 fl (84-94) L 09/02/17 13:41 MCH 28 pg (28-32) 09/02/17 13:41 MCHC 34 % (32-34) 09/02/17 13:41 RDW 17.9 % (13.2-15.2) H 09/02/17 13:41 Plt Count 616 K/mm3 (140-440) H 09/02/17 13:41 Add Manual Diff Complete 09/01/17 15:34 Total Counted 100 09/01/17 15:34 Seg Neuts % (Manual) 66.0 % (40.0-70.0) 09/01/17 15:34 Band Neutrophils % 0 % 09/01/17 15:34 Lymphocytes % (Manual) 17.0 % (13.4-35.0) 09/01/17 15:34 Reactive Lymphs % (Man) 0 % 09/01/17 15:34 Monocytes % (Manual) 16.0 % (0.0-7.3) H 09/01/17 15:34 Eosinophils % (Manual) 1.0 % (0.0-4.3) 09/01/17 15:34 Basophils % (Manual) 0 % (0.0-1.8) 09/01/17 15:34 Metamyelocytes % 0 % 09/01/17 15:34 Myelocytes % 0 % 09/01/17 15:34 Promyelocytes % 0 % 09/01/17 15:34 Blast Cells % 0 % 09/01/17 15:34 Nucleated RBC % Not Reportable 09/01/17 15:34 Seg Neutrophils # Man 5.0 K/mm3 (1.8-7.7) 09/01/17 15:34 Band Neutrophils # 0.0 K/mm3 09/01/17 15:34 Lymphocytes # (Manual) 1.3 K/mm3 (1.2-5.4) 09/01/17 15:34 Abs React Lymphs (Man) 0.0 K/mm3 09/01/17 15:34 Monocytes # (Manual) 1.2 K/mm3 (0.0-0.8) H 09/01/17 15:34 Eosinophils # (Manual) 0.1 K/mm3 (0.0-0.4) 09/01/17 15:34 Basophils # (Manual) 0.0 K/mm3 (0.0-0.1) 09/01/17 15:34 Metamyelocytes # 0.0 K/mm3 09/01/17 15:34 Myelocytes # 0.0 K/mm3 09/01/17 15:34 Promyelocytes # 0.0 K/mm3 09/01/17 15:34 Blast Cells # 0.0 K/mm3 09/01/17 15:34 WBC Morphology Not Reportable 09/01/17 15:34 Hypersegmented Neuts Not Reportable 09/01/17 15:34 Hyposegmented Neuts Not Reportable 09/01/17 15:34 Hypogranular Neuts Not Reportable 09/01/17 15:34 Smudge Cells Not Reportable 09/01/17 15:34 Toxic Granulation Not Reportable 09/01/17 15:34 Toxic Vacuolation Not Reportable 09/01/17 15:34 Dohle Bodies Not Reportable 09/01/17 15:34 Pelger-Huet Anomaly Not Reportable 09/01/17 15:34 Christina Rods Not Reportable 09/01/17 15:34 Platelet Estimate Not Reportable 09/01/17 15:34 Clumped Platelets Not Reportable 09/01/17 15:34 Plt Clumps, EDTA Not Reportable 09/01/17 15:34 Large Platelets Not Reportable 09/01/17 15:34 Giant Platelets Not Reportable 09/01/17 15:34 Platelet Satelliting Not Reportable 09/01/17 15:34 Plt Morphology Comment Not Reportable 09/01/17 15:34 RBC Morphology Normal 09/01/17 15:34 Dimorphic RBCs Not Reportable 09/01/17 15:34 Polychromasia Not Reportable 09/01/17 15:34 Hypochromasia Not Reportable 09/01/17 15:34 Poikilocytosis Not Reportable 09/01/17 15:34 Anisocytosis Not Reportable 09/01/17 15:34 Microcytosis Not Reportable 09/01/17 15:34 Macrocytosis Not Reportable 09/01/17 15:34 Spherocytes Not Reportable 09/01/17 15:34 Pappenheimer Bodies Not Reportable 09/01/17 15:34 Sickle Cells Not Reportable 09/01/17 15:34 Target Cells Not Reportable 09/01/17 15:34 Tear Drop Cells Not Reportable 09/01/17 15:34 Ovalocytes Not Reportable 09/01/17 15:34 Helmet Cells Not Reportable 09/01/17 15:34 [place] Bodies Not Reportable 09/01/17 15:34 [place] Rings Not Reportable 09/01/17 15:34 Jennifer Cells Not Reportable 09/01/17 15:34 Bite Cells Not Reportable 09/01/17 15:34 Crenated Cell Not Reportable 09/01/17 15:34 Elliptocytes Not Reportable 09/01/17 15:34 Acanthocytes (Spur) Not Reportable 09/01/17 15:34 Rouleaux Not Reportable 09/01/17 15:34 Hemoglobin C Crystals Not Reportable 09/01/17 15:34 Schistocytes Not Reportable 09/01/17 15:34 Malaria parasites Not Reportable 09/01/17 15:34 Bogdan Bodies Not Reportable 09/01/17 15:34 Hem Pathologist Commnt No 09/01/17 15:34 PT 13.2 Sec. (12.2-14.9) 09/01/17 15:34 INR 0.95 (0.87-1.13) 09/01/17 15:34 APTT 37.7 Sec. (24.2-36.6) H 09/01/17 15:34 Thrombin Time 15.0 Sec. (15.1-19.6) L 09/01/17 15:34 Sodium 138 mmol/L (137-145) 09/01/17 15:34 Potassium 5.1 mmol/L (3.6-5.0) H 09/01/17 15:34 Chloride 101.3 mmol/L (98-107) 09/01/17 15:34 Carbon Dioxide 17 mmol/L (22-30) L 09/01/17 15:34 Anion Gap 25 mmol/L 09/01/17 15:34 BUN 56 mg/dL (9-20) H 09/01/17 15:34 Creatinine 1.7 mg/dL (0.8-1.5) H 09/01/17 15:34 Estimated GFR 41 ml/min 09/01/17 15:34 BUN/Creatinine Ratio 33 % 09/01/17 15:34 Glucose 137 mg/dL (75-100) H 09/01/17 15:34 POC Glucose 132 (70-105) H 09/01/17 16:39 Calcium 9.8 mg/dL (8.4-10.2) 09/01/17 15:34 Total Bilirubin < 0.20 mg/dL (0.1-1.2) 09/01/17 17:29 Direct Bilirubin < 0.2 mg/dL (0-0.2) 09/01/17 17:29 Indirect Bilirubin 0.0 mg/dL 09/01/17 17:29 AST 17 units/L (5-40) 09/01/17 17:29 ALT 10 units/L (7-56) 09/01/17 17:29 Alkaline Phosphatase 113 units/L (35-129) 09/01/17 17:29 Troponin T < 0.010 ng/mL (0.00-0.029) 09/01/17 15:34 Total Protein 7.8 g/dL (6.3-8.2) 09/01/17 17:29 Albumin 4.0 g/dL (3.9-5) 09/01/17 17:29 Albumin/Globulin Ratio 1.1 % 09/01/17 17:29 Triglycerides 374 mg/dL (2-149) H 09/02/17 13:41 Cholesterol 164 mg/dL (50-199) 09/02/17 13:41 LDL Cholesterol Direct 91 mg/dL (50-130) 09/02/17 13:41 HDL Cholesterol 28 mg/dL (40-59) L 09/02/17 13:41 Cholesterol/HDL Ratio 5.85 % 09/02/17 13:41 Blood Type O POSITIVE 09/01/17 17:29 Antibody Screen Negative 09/01/17 17:29 Crossmatch See Detail 09/01/17 17:29
[2017-09-02] MEDS ORDERED: RESTORIL PO ONE (22:53)
--- NOTE | 2017-09-03 02:20 | Consultation ---
NEUROLOGIC CONSULTATION REFERRING PHYSICIAN: Jair Ballard MD HISTORY OF PRESENT ILLNESS: Given by the patient. There is very slight language barrier. The patient had difficulties talking in Czech. Therefore, sometimes he cannot express what he wanted to say. However, I feel that he is mentally clear. No dementia or no encephalopathy. He is a 61-year-old right handed [place] male who had an episode about 1-1/2 weeks ago of his left upper and left lower extremity being numb, that was the first time that he noticed this. He cannot tell me whether he had a complete paralysis or not, but the left side just becoming numb and weak. There were no associated problems with speech or vision. He apparently just let it go, did not do anything. He did not get consult their physician. Yesterday something had happened. He could not tell me very well, either he felt more symptomatic such as dizziness and headache or he had fallen. He was not sure about this. He, however, told me that his speech has become slurred. There was no visual complaint. No problem with swallowing. He was able to eat. From what I could tell from the history, he had been the same from the last 1-1/2 to 2-1/2 weeks. I am not sure whether he came to the Emergency Room because of being weak or not. Therefore, this part is lacking in the history. I looked at the history and physical examination by Dr. Ballard. Again, the patient cannot provide a detailed history, but he had experienced left-sided weakness. He was confused and has slurred speech for the last 10 days and he did not get better and probably that is the reason why he was brought to the hospital. It was felt that he had an acute stroke and they consulted tele neurology and advised admission, initiation of the stroke protocol. I was therefore called to assess the history of stroke. He recommended transthoracic echocardiogram, MRI of the head and brain, MRI of the neck and metabolic profile. I do not see any suggestion. PAST MEDICAL HISTORY: The patient has hypertension only. No previous similar history. No history of stroke or bleeding. PAST SURGICAL HISTORY: None is known. SOCIAL HISTORY: He is with 2 children. He said that he smoked, but quit and drink alcoholic beverages, but quit also. He denied taking drugs, illegal. ALLERGIES: None known allergies. He has had EGD and colonoscopy in 05/2017. He was given omeprazole. FAMILY HISTORY: Positive for hypertension. PHYSICAL EXAMINATION: GENERAL: Reveals a well-developed, well-nourished, somewhat thin male who is in no acute distress. VITAL SIGNS: Stable. He has ____ on his side. HEAD, EYES, EARS, NOSE, AND THROAT: Mouth and throat examination unremarkable. His physique is somewhat thin. No intracranial or intraorbital bruit. NECK: Supple. No carotid bruit. HEART: Regular in rhythm. He has prominent intercostal space. EXTREMITIES: He has mild swelling only. NEUROLOGIC: Revealed the patient is awake, alert. Mental status was normal for age. Cranial nerve examination was basically normal. He, however, has a change at the base of his brain. Cranial nerve examination was unremarkable, but there is a slight left gaze preference. Cranial nerve examination was unremarkable. Coordination intact. ____. INITIAL CLINICAL IMPRESSION: This patient had a right-sided hemispheric dysfunction. Etiology of this is still not clear. Differential includes a cerebrovascular event either an infarction with subsequent denervation. The patient should be observed closely ____. RECOMMENDATIONS: I concur with current management. We will do an echocardiogram, telemetry for close followup. Sixty minutes involved in the evaluation and management of this patient and more than 50% in coordination of care. Thank you for this referral. I will follow with you. JOB# [id number] BOONE/TERESA
--- NOTE | 2017-09-03 07:54 | Consultation ---
ADDENDUM This is an addendum to the consultation. The patient has had medical problems. He was diagnosed with malnutrition before, Britton's esophagus, nicotine dependency. He was found to have an antral ulcer before when he had an EGD. SUMMARY OF NEUROLOGICAL PROBLEM. This patient has evidence of a right-sided hemispheric dysfunction with evidence of left-sided hemiparesis, slight Babinski on the left side. He also had a history of slurred speech. Localization, most likely is in the branches of the right middle cerebral artery. I am not sure whether the anemia was the cause for the muscular episode in the right hemisphere. Differential diagnosis is neoplasm. We will review the tests, MRI, CT scan, MRA. The patient will have a 2D echo and I recommend at least a carotid ultrasound. Avoid antiplatelet because of the history of bleeding. Sixty minutes involved in the history and physical examination and more than 50% involved in the coordination of care. Thank you for this referral. JOB# [id number] BOONE/TERESA
--- NOTE | 2017-09-03 09:54 | Gastroenterology Progress Note ---
Assessment and Plan - Patient Problems (1) Gastric ulcer Current Visit: Yes Status: Acute Plan to address problem: Needs EGD once cleared by neurology. May need colonoscopy if not done recently and if EGD is unrevealing, especially if anticoagulation will be required. (2) CVA (cerebral vascular accident) Current Visit: Yes Status: Acute Qualifiers: Precerebral and cerebral artery: middle cerebral artery Laterality of affected vessel: right (3) Symptomatic anemia Current Visit: Yes Status: Acute Plan to address problem: Improved H&H post transfusion. Probably iron deficient. Subjective Date of service: 09/03/17 Principal diagnosis: History of gastric ulcer, severe anemia Interval history: The patient denies any complaints. Objective - Constitutional Vitals: Temp Pulse Resp BP Pulse Ox 98.3 F 78 18 148/78 100 09/03/17 07:38 09/03/17 08:00 09/03/17 07:38 09/03/17 07:38 09/03/17 07:38 General appearance: no acute distress - EENT ENT: hearing intact, clear oral mucosa, dentition normal - Neck Neck: supple, normal ROM - Respiratory Respiratory effort: normal Respiratory: bilateral: CTA - Cardiovascular Rhythm: regular - Extremities Extremities: pulses intact, No edema, normal color, Full ROM - Gastrointestinal General gastrointestinal: Present: soft, non-tender, non-distended, normal bowel sounds - Neurologic Neurological: alert and oriented x3 - Labs CBC & Chem 7: 09/02/17 13:41 09/01/17 15:34 Labs: Laboratory Results - last 24 hr 09/01/17 09/02/17 09/02/17 17:29 13:41 13:41 WBC 6.5 RBC 3.39 L Hgb 9.5 L D Hct 27.8 L D MCV 82 L MCH 28 MCHC 34 RDW 17.9 H Plt Count 616 H Triglycerides 374 H Cholesterol 164 LDL Cholesterol Direct 91 HDL Cholesterol 28 L Cholesterol/HDL Ratio 5.85 Crossmatch See Detail
[2017-09-03] MEDS: BABY ASPIRIN PO SCH (10:43)
[2017-09-03] MEDS: PROTONIX IV SCH ×2 (10:43→21:48)
--- NOTE | 2017-09-03 11:22 | Event Note ---
Date: 09/03/17 Per telephone communication with Dr. Salvador, the patient will be cleared by neurology for endoscopy. Will schedule for tomorrow.
--- NOTE | 2017-09-03 14:50 | Vascular Lab Report ---
CAROTID DUPLEX STUDY: RIGHT PSVEDV CCA PROX:74 20 CCA DIST:74 24 ICA PROX:54731 ICA MID:92 35 ICA DIST:90 37 ECA: 122 VERT: 34 0 LEFT PSVEDV CCA PROX:62508 CCA DIST:39716 ICA PROX:77534 ICA MID:50860 ICA DIST:86845 ECA: 89 VERT: 60 28 REASON FOR EXAM: Stroke. COMMENTS ON THE RIGHT: Doppler frequency analysis is consistent with 16 to 49 percent diameter reduction of the internal carotid artery. A moderate amount of mixed density irregular surfaced plaque is seen. The common carotid artery is patent. The external carotid artery is patent. The vertebral artery has antegrade flow and waveforms appear to be preocclusive. COMMENTS ON THE LEFT: Doppler frequency analysis is consistent with 50 to 79 percent diameter reduction of the internal carotid artery. A large amount of irregular surfaced mixed density plaque is seen. The common carotid artery is patent. The external carotid artery is patent. The vertebral artery has antegrade flow. IMPRESSION: 50-79% diameter reduction in the left internal carotid artery with a large amount of irregular surfaced plaque seen. 16-49% diameter reduction in the right internal carotid artery with a moderate amount of mixed density plaque. Preocclusive waveforms in the right vertebral artery. Recommend CT angiography for further evaluation.
--- NOTE | 2017-09-03 16:51 | Progress Note ---
Assessment and Plan Assessment and plan: 61 YO Male with HTN, Malnutrition, Krish's Eshphagus, Nicotine Dependence presents to ED for evaluation. Pt is unable to provide detailed history. History taken from ED staff, and family members at bedside during exam and interview. As per family, the patient has experienced Left side weakness, confusion, slurred speech over the past 10 days with persistent symptoms over the same time frame. No reports of fever, chills, CP, Palpitations, Falls, Trauma, BRBPR, Seizure, productive cough, skin rash, or recent in contacts. Pt seen and evaluated in ED and found to have symptoms of acute stroke. Code stroke was called. Teleneurology consulted. Pt is outside therapeutic window for TPA/ Pt admitted to telemetry and initiates on CVA protocol. Acute CVA - MRI right medial cerebellar peduncle acute infarct - Patient is on aspirin and statin Severe anemia - Patient was transfused with 2 units of blood - H/H stable - GI consulted and will do EGD to assess to evaluate for GI cancer - Currently on IV PPI Hypertension - Permissive hypertension - We'll give hydralazine when necessary when it is greater than 175/115 JUSTINA - We'll monitor closely PT/OT evaluation Speech therapy evaluation DVT prophylaxis Disposition - EGD tomorrow - patient wants to go home History Interval history: Patient was seen and evaluated this morning, patient has mild left-sided UE weakness. Hospitalist Physical - Physical exam Narrative exam: Not in cardiopulmonary distress. The patient appeared well nourished and normally developed. Vital signs as documented. Head exam is unremarkable. No scleral icterus . Neck is without jugular venous distension, thyromegaly, or carotid bruits. Lungs are clear to auscultation. Cardiac exam reveals regular rate and Rhythm. First and second heart sounds normal. No murmurs, rubs or gallops. Abdominal exam reveals normal bowel sounds, no masses, no organomegaly and no aortic enlargement. Extremities are nonedematous and both femoral and pedal pulses are normal. 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 Mild left upper extremity weakness - Constitutional Vitals: Temp Pulse Resp BP Pulse Ox 98.3 F 78 18 148/78 100 09/03/17 07:38 09/03/17 08:00 09/03/17 07:38 09/03/17 07:38 09/03/17 07:38 General appearance: Present: mild distress Results - Labs CBC & Chem 7: 09/02/17 13:41 09/01/17 15:34 Labs: Laboratory Last Values WBC 6.5 K/mm3 (4.5-11.0) 09/02/17 13:41 RBC 3.39 M/mm3 (3.65-5.03) L 09/02/17 13:41 Hgb 9.5 gm/dl (11.8-15.2) L D 09/02/17 13:41 Hct 27.8 % (35.5-45.6) L D 09/02/17 13:41 MCV 82 fl (84-94) L 09/02/17 13:41 MCH 28 pg (28-32) 09/02/17 13:41 MCHC 34 % (32-34) 09/02/17 13:41 RDW 17.9 % (13.2-15.2) H 09/02/17 13:41 Plt Count 616 K/mm3 (140-440) H 09/02/17 13:41 Add Manual Diff Complete 09/01/17 15:34 Total Counted 100 09/01/17 15:34 Seg Neuts % (Manual) 66.0 % (40.0-70.0) 09/01/17 15:34 Band Neutrophils % 0 % 09/01/17 15:34 Lymphocytes % (Manual) 17.0 % (13.4-35.0) 09/01/17 15:34 Reactive Lymphs % (Man) 0 % 09/01/17 15:34 Monocytes % (Manual) 16.0 % (0.0-7.3) H 09/01/17 15:34 Eosinophils % (Manual) 1.0 % (0.0-4.3) 09/01/17 15:34 Basophils % (Manual) 0 % (0.0-1.8) 09/01/17 15:34 Metamyelocytes % 0 % 09/01/17 15:34 Myelocytes % 0 % 09/01/17 15:34 Promyelocytes % 0 % 09/01/17 15:34 Blast Cells % 0 % 09/01/17 15:34 Nucleated RBC % Not Reportable 09/01/17 15:34 Seg Neutrophils # Man 5.0 K/mm3 (1.8-7.7) 09/01/17 15:34 Band Neutrophils # 0.0 K/mm3 09/01/17 15:34 Lymphocytes # (Manual) 1.3 K/mm3 (1.2-5.4) 09/01/17 15:34 Abs React Lymphs (Man) 0.0 K/mm3 09/01/17 15:34 Monocytes # (Manual) 1.2 K/mm3 (0.0-0.8) H 09/01/17 15:34 Eosinophils # (Manual) 0.1 K/mm3 (0.0-0.4) 09/01/17 15:34 Basophils # (Manual) 0.0 K/mm3 (0.0-0.1) 09/01/17 15:34 Metamyelocytes # 0.0 K/mm3 09/01/17 15:34 Myelocytes # 0.0 K/mm3 09/01/17 15:34 Promyelocytes # 0.0 K/mm3 09/01/17 15:34 Blast Cells # 0.0 K/mm3 09/01/17 15:34 WBC Morphology Not Reportable 09/01/17 15:34 Hypersegmented Neuts Not Reportable 09/01/17 15:34 Hyposegmented Neuts Not Reportable 09/01/17 15:34 Hypogranular Neuts Not Reportable 09/01/17 15:34 Smudge Cells Not Reportable 09/01/17 15:34 Toxic Granulation Not Reportable 09/01/17 15:34 Toxic Vacuolation Not Reportable 09/01/17 15:34 Dohle Bodies Not Reportable 09/01/17 15:34 Pelger-[place]uet Anomaly Not Reportable 09/01/17 15:34 Christina Rods Not Reportable 09/01/17 15:34 Platelet Estimate Not Reportable 09/01/17 15:34 Clumped Platelets Not Reportable 09/01/17 15:34 Plt Clumps, EDTA Not Reportable 09/01/17 15:34 Large Platelets Not Reportable 09/01/17 15:34 Giant Platelets Not Reportable 09/01/17 15:34 Platelet Satelliting Not Reportable 09/01/17 15:34 Plt Morphology Comment Not Reportable 09/01/17 15:34 RBC Morphology Normal 09/01/17 15:34 Dimorphic RBCs Not Reportable 09/01/17 15:34 Polychromasia Not Reportable 09/01/17 15:34 Hypochromasia Not Reportable 09/01/17 15:34 Poikilocytosis Not Reportable 09/01/17 15:34 Anisocytosis Not Reportable 09/01/17 15:34 Microcytosis Not Reportable 09/01/17 15:34 Macrocytosis Not Reportable 09/01/17 15:34 Spherocytes Not Reportable 09/01/17 15:34 Pappenheimer Bodies Not Reportable 09/01/17 15:34 Sickle Cells Not Reportable 09/01/17 15:34 Target Cells Not Reportable 09/01/17 15:34 Tear Drop Cells Not Reportable 09/01/17 15:34 Ovalocytes Not Reportable 09/01/17 15:34 Helmet Cells Not Reportable 09/01/17 15:34 [place] Bodies Not Reportable 09/01/17 15:34 [place] Rings Not Reportable 09/01/17 15:34 Jennifer Cells Not Reportable 09/01/17 15:34 Bite Cells Not Reportable 09/01/17 15:34 Crenated Cell Not Reportable 09/01/17 15:34 Elliptocytes Not Reportable 09/01/17 15:34 Acanthocytes (Spur) Not Reportable 09/01/17 15:34 Rouleaux Not Reportable 09/01/17 15:34 Hemoglobin C Crystals Not Reportable 09/01/17 15:34 Schistocytes Not Reportable 09/01/17 15:34 Malaria parasites Not Reportable 09/01/17 15:34 Bogdan Bodies Not Reportable 09/01/17 15:34 Hem Pathologist Commnt No 09/01/17 15:34 PT 13.2 Sec. (12.2-14.9) 09/01/17 15:34 INR 0.95 (0.87-1.13) 09/01/17 15:34 APTT 37.7 Sec. (24.2-36.6) H 09/01/17 15:34 Thrombin Time 15.0 Sec. (15.1-19.6) L 09/01/17 15:34 Sodium 138 mmol/L (137-145) 09/01/17 15:34 Potassium 5.1 mmol/L (3.6-5.0) H 09/01/17 15:34 Chloride 101.3 mmol/L (98-107) 09/01/17 15:34 Carbon Dioxide 17 mmol/L (22-30) L 09/01/17 15:34 Anion Gap 25 mmol/L 09/01/17 15:34 BUN 56 mg/dL (9-20) H 09/01/17 15:34 Creatinine 1.7 mg/dL (0.8-1.5) H 09/01/17 15:34 Estimated GFR 41 ml/min 09/01/17 15:34 BUN/Creatinine Ratio 33 % 09/01/17 15:34 Glucose 137 mg/dL (75-100) H 09/01/17 15:34 POC Glucose 132 (70-105) H 09/01/17 16:39 Calcium 9.8 mg/dL (8.4-10.2) 09/01/17 15:34 Total Bilirubin < 0.20 mg/dL (0.1-1.2) 09/01/17 17:29 Direct Bilirubin < 0.2 mg/dL (0-0.2) 09/01/17 17:29 Indirect Bilirubin 0.0 mg/dL 09/01/17 17:29 AST 17 units/L (5-40) 09/01/17 17:29 ALT 10 units/L (7-56) 09/01/17 17:29 Alkaline Phosphatase 113 units/L (35-129) 09/01/17 17:29 Troponin T < 0.010 ng/mL (0.00-0.029) 09/01/17 15:34 Total Protein 7.8 g/dL (6.3-8.2) 09/01/17 17:29 Albumin 4.0 g/dL (3.9-5) 09/01/17 17:29 Albumin/Globulin Ratio 1.1 % 09/01/17 17:29 Triglycerides 374 mg/dL (2-149) H 09/02/17 13:41 Cholesterol 164 mg/dL (50-199) 09/02/17 13:41 LDL Cholesterol Direct 91 mg/dL (50-130) 09/02/17 13:41 HDL Cholesterol 28 mg/dL (40-59) L 09/02/17 13:41 Cholesterol/HDL Ratio 5.85 % 09/02/17 13:41 Blood Type O POSITIVE 09/01/17 17:29 Antibody Screen Negative 09/01/17 17:29 Crossmatch See Detail 09/01/17 17:29
--- NOTE | 2017-09-03 23:06 | Physician Progress Note ---
SUBJECTIVE: The patient is neurologically stable. He has no specific complaint. He is stronger at this time. No chest pain, no abdominal pain. He was seen by manager analysis and he proposed to do an EGD to check for any areas of bleeding because his hemoglobin came down to 5.6, but now it went up to 9.5 already. OBJECTIVE: VITAL SIGNS: Stable. HEART: Normal. ABDOMEN: Nontender. NEUROLOGICAL: Mental status normal. Cranial nerves normal. Motor examination now normal. There is no weakness on the left or the right side. No long tract signs. ASSESSMENT: This patient most likely had left-sided hemiparesis. Most likely, she had a stroke, mild in the region of the right middle cerebral artery. The patient had an MRI of the brain, which only showed a complete opacification of the right maxillary sinus, otherwise, there is no evidence of a stroke, but the impression only was a right middle cerebellar peduncle nonhemorrhagic infarct, but this has no clinical correlation. PLAN: I agree that this patient should have an EGD to rule out any cause of the bleeding considering that hemoglobin became very low. This could contribute to the episode of what appeared to be a transient ischemic attack with MRI evidence of the right middle cerebellar peduncle infarct which is small. Case was discussed with Dr. Salvador. Dr. Shane Matamoros is the manager analysis. JOB# [id number] BOONE/TERESA
[2017-09-04 07:27] LABS: BUN/Creatinine Ratio 29; Blood Urea Nitrogen 26 mg/dL (9-20); Calcium 9.2 mg/dL (8.4-10.2); Hemolysis Index 0
[2017-09-04] MEDS ORDERED: NACL 0.9% 1000 ML 1,000 ML ONE (08:13)
[2017-09-04] MEDS ORDERED: WATER FOR IRRIG STERILE IR ONE (08:20)
--- NOTE | 2017-09-04 09:12 | Anesthesia Day of Surgery ---
Anesthesia Day of Surgery - Day of Surgery Patient Examined: Yes Patient H&P Reviewed: Yes Patient is NPO: Yes Beta Blockers: No
--- NOTE | 2017-09-04 09:13 | Anesthesia Consultation ---
Anesthesia Consult and Med Hx - Airway Anesthetic Teeth Evaluation: Good ROM Head & Neck: Adequate Mental/Hyoid Distance: Adequate Mallampati Class: Class II Intubation Access Assessment: Probably Good - Pulmonary Exam CTA: Yes - Cardiac Exam Cardiac Exam: No Murmur - Pre-Operative Health Status ASA Pre-Surgery Classification: ASA3 Proposed Anesthetic Plan: General - Pulmonary Hx Smoking: Yes Hx Asthma: No Hx Respiratory Symptoms: No SOB: No COPD: No Home Oxygen Therapy: No Hx Pneumonia: No Hx Sleep Apnea: No - Cardiovascular System Hx Hypertension: Yes Hx Coronary Artery Disease: No Hx Heart Attack/AMI: No Hx Angina: No Hx Percutaneous Transluminal Coronary Angioplasty (PTCA): No Hx Cardia Arrhythmia: No Hx Pacemaker: No Hx Internal Defibrillator: No Hx Valvular Heart Disease: No Hx Heart Murmur: No Hx Peripheral Vascular Disease: No - Central Nervous System Hx Neuromuscular Disorder: No Hx Seizures: No CVA: No Hx Back Pain: No - Gastrointestinal Hx Ulcer: No Hx Gastroesophageal Reflux Disease: No - Endocrine Hx Renal Disease: No Hx End Stage Renal Disease: No Hx Cirrhosis: No Hx Liver Disease: No Hx Insulin Dependent Diabetes: No Hx Non-Insulin Dependent Diabetes: No Hx Thyroid Disease: No Hx Hypothyroidism: No Hx Hyperthyroidism: No - Hematic Hx Anemia: No Hx Sickle Cell Disease: No - Other Systems Hx Alcohol Use: No Hx Substance Use: No Hx Cancer: No Hx Obesity: No
[2017-09-04] MEDS ORDERED: XYLOCAINE 2% INFILTRATI ONE (09:18)
[2017-09-04] MEDS ORDERED: DIPRIVAN 10 MG/ML IV ONE (09:18)
--- NOTE | 2017-09-04 09:35 | Operative Report ---
Operative Report Operative Report: Date of procedure: 09/04/2017 Procedure: Esophagogastroduodenoscopy with biopsies of gastric ulcer Preprocedure diagnosis: History of a large antral ulcer. Severe anemia suggesting chronic blood loss. Rule out gastric cancer. Post procedure diagnosis: Large antral ulcer crater with indeterminate features for malignancy. Endoscopist: Dr. Matamoros Anesthesia: Monitored anesthesia care per anesthesia department Medications: Propofol per anesthesia Estimated blood loss: 0 After careful discussion of the nature and purpose of the procedure as well as details the technique risks benefits and alternatives consent was obtained. The patient was placed in the left lateral decubitus position and medicated per anesthesia. The tip of the [facility] EQ 570 video scope was passed per orum under direct vision into the esophagus and advanced into the stomach and descending duodenum. The descending duodenum the duodenal bulb and pylorus were symmetrical and normal. The scope was withdrawn into the stomach and the stomach then gently insufflated with air. The antrum revealed a large ulcer crater, at least 5 cm in size in the lower third extending almost to the pylorus. The base was slightly irregular. Multiple biopsies were taken from the edge and a few from the midportion of the ulcer. The stomach was further insufflated and the scope was then retroflexed and partially withdrawn. The cardia, fundus, and body of the stomach were within normal limits and easily distensible.The scope was then withdrawn in the forward position. The esophagogastric junction was at 39 cm. The esophageal body was normal throughout. The procedure was was well tolerated and the patient was observed in recovery. Impressions: Large antral ulcer with features suspicious for malignancy. Normal esophagus and duodenum. Plan: Await pathology. High-dose PPI therapy. If biopsies are benign the patient will need close follow-up and repeat endoscopy in 6 weeks to more definitively exclude malignancy. Electronically signed: Shane Matamoros MD
[2017-09-04] MEDS: BABY ASPIRIN PO SCH (11:34)
[2017-09-04] MEDS: PROTONIX IV SCH ×2 (11:34→21:30)
[2017-09-04] MEDS: NORVASC PO SCH (11:41)
--- NOTE | 2017-09-04 16:35 | Progress Note ---
Assessment and Plan Assessment and plan: 61 YO Male with HTN, Malnutrition, Krish's Eshphagus, Nicotine Dependence presents to ED for evaluation. Pt is unable to provide detailed history. History taken from ED staff, and family members at bedside during exam and interview. As per family, the patient has experienced Left side weakness, confusion, slurred speech over the past 10 days with persistent symptoms over the same time frame. No reports of fever, chills, CP, Palpitations, Falls, Trauma, BRBPR, Seizure, productive cough, skin rash, or recent in contacts. Pt seen and evaluated in ED and found to have symptoms of acute stroke. Code stroke was called. Teleneurology consulted. Pt is outside therapeutic window for TPA/ Pt admitted to telemetry and initiates on CVA protocol. Acute CVA - MRI right medial cerebellar peduncle acute infarct - Patient is on aspirin and statin Severe anemia - Patient was transfused with 2 units of blood - H/H stable - GI consulted and did EGD this morning showed mass in the abdomen - Currently on IV PPI Hypertension - on amlodipine JUSTINA - resolved PT/OT evaluation Speech therapy evaluation DVT prophylaxis Disposition - will discharge after we get the preliminary pathology result tomorrow History Interval history: Patient was seen and evaluated this morning, patient has mild left-sided UE weakness. Hospitalist Physical - Physical exam Narrative exam: Not in cardiopulmonary distress. The patient appeared well nourished and normally developed. Vital signs as documented. Head exam is unremarkable. No scleral icterus . Neck is without jugular venous distension, thyromegaly, or carotid bruits. Lungs are clear to auscultation. Cardiac exam reveals regular rate and Rhythm. First and second heart sounds normal. No murmurs, rubs or gallops. Abdominal exam reveals normal bowel sounds, no masses, no organomegaly and no aortic enlargement. Extremities are nonedematous and both femoral and pedal pulses are normal. 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 Mild left upper extremity weakness - Constitutional Vitals: Temp Pulse Resp BP Pulse Ox 98.1 F 70 20 167/90 100 09/04/17 09:29 09/04/17 11:41 09/04/17 10:00 09/04/17 11:41 09/04/17 09:50 General appearance: Present: mild distress Results - Labs CBC & Chem 7: 09/02/17 13:41 09/04/17 06:54 Labs: Laboratory Last Values WBC 6.5 K/mm3 (4.5-11.0) 09/02/17 13:41 RBC 3.39 M/mm3 (3.65-5.03) L 09/02/17 13:41 Hgb 9.5 gm/dl (11.8-15.2) L D 09/02/17 13:41 Hct 27.8 % (35.5-45.6) L D 09/02/17 13:41 MCV 82 fl (84-94) L 09/02/17 13:41 MCH 28 pg (28-32) 09/02/17 13:41 MCHC 34 % (32-34) 09/02/17 13:41 RDW 17.9 % (13.2-15.2) H 09/02/17 13:41 Plt Count 616 K/mm3 (140-440) H 09/02/17 13:41 Add Manual Diff Complete 09/01/17 15:34 Total Counted 100 09/01/17 15:34 Seg Neuts % (Manual) 66.0 % (40.0-70.0) 09/01/17 15:34 Band Neutrophils % 0 % 09/01/17 15:34 Lymphocytes % (Manual) 17.0 % (13.4-35.0) 09/01/17 15:34 Reactive Lymphs % (Man) 0 % 09/01/17 15:34 Monocytes % (Manual) 16.0 % (0.0-7.3) H 09/01/17 15:34 Eosinophils % (Manual) 1.0 % (0.0-4.3) 09/01/17 15:34 Basophils % (Manual) 0 % (0.0-1.8) 09/01/17 15:34 Metamyelocytes % 0 % 09/01/17 15:34 Myelocytes % 0 % 09/01/17 15:34 Promyelocytes % 0 % 09/01/17 15:34 Blast Cells % 0 % 09/01/17 15:34 Nucleated RBC % Not Reportable 09/01/17 15:34 Seg Neutrophils # Man 5.0 K/mm3 (1.8-7.7) 09/01/17 15:34 Band Neutrophils # 0.0 K/mm3 09/01/17 15:34 Lymphocytes # (Manual) 1.3 K/mm3 (1.2-5.4) 09/01/17 15:34 Abs React Lymphs (Man) 0.0 K/mm3 09/01/17 15:34 Monocytes # (Manual) 1.2 K/mm3 (0.0-0.8) H 09/01/17 15:34 Eosinophils # (Manual) 0.1 K/mm3 (0.0-0.4) 09/01/17 15:34 Basophils # (Manual) 0.0 K/mm3 (0.0-0.1) 09/01/17 15:34 Metamyelocytes # 0.0 K/mm3 09/01/17 15:34 Myelocytes # 0.0 K/mm3 09/01/17 15:34 Promyelocytes # 0.0 K/mm3 09/01/17 15:34 Blast Cells # 0.0 K/mm3 09/01/17 15:34 WBC Morphology Not Reportable 09/01/17 15:34 Hypersegmented Neuts Not Reportable 09/01/17 15:34 Hyposegmented Neuts Not Reportable 09/01/17 15:34 Hypogranular Neuts Not Reportable 09/01/17 15:34 Smudge Cells Not Reportable 09/01/17 15:34 Toxic Granulation Not Reportable 09/01/17 15:34 Toxic Vacuolation Not Reportable 09/01/17 15:34 Dohle Bodies Not Reportable 09/01/17 15:34 Pelger-Huet Anomaly Not Reportable 09/01/17 15:34 Christina Rods Not Reportable 09/01/17 15:34 Platelet Estimate Not Reportable 09/01/17 15:34 Clumped Platelets Not Reportable 09/01/17 15:34 Plt Clumps, EDTA Not Reportable 09/01/17 15:34 Large Platelets Not Reportable 09/01/17 15:34 Giant Platelets Not Reportable 09/01/17 15:34 Platelet Satelliting Not Reportable 09/01/17 15:34 Plt Morphology Comment Not Reportable 09/01/17 15:34 RBC Morphology Normal 09/01/17 15:34 Dimorphic RBCs Not Reportable 09/01/17 15:34 Polychromasia Not Reportable 09/01/17 15:34 Hypochromasia Not Reportable 09/01/17 15:34 Poikilocytosis Not Reportable 09/01/17 15:34 Anisocytosis Not Reportable 09/01/17 15:34 Microcytosis Not Reportable 09/01/17 15:34 Macrocytosis Not Reportable 09/01/17 15:34 Spherocytes Not Reportable 09/01/17 15:34 Pappenheimer Bodies Not Reportable 09/01/17 15:34 Sickle Cells Not Reportable 09/01/17 15:34 Target Cells Not Reportable 09/01/17 15:34 Tear Drop Cells Not Reportable 09/01/17 15:34 Ovalocytes Not Reportable 09/01/17 15:34 Helmet Cells Not Reportable 09/01/17 15:34 [place] Bodies Not Reportable 09/01/17 15:34 [place] Rings Not Reportable 09/01/17 15:34 [place] Cells Not Reportable 09/01/17 15:34 Bite Cells Not Reportable 09/01/17 15:34 Crenated Cell Not Reportable 09/01/17 15:34 Elliptocytes Not Reportable 09/01/17 15:34 Acanthocytes (Spur) Not Reportable 09/01/17 15:34 Rouleaux Not Reportable 09/01/17 15:34 Hemoglobin C Crystals Not Reportable 09/01/17 15:34 Schistocytes Not Reportable 09/01/17 15:34 Malaria parasites Not Reportable 09/01/17 15:34 Bogdan Bodies Not Reportable 09/01/17 15:34 Hem Pathologist Commnt No 09/01/17 15:34 PT 13.2 Sec. (12.2-14.9) 09/01/17 15:34 INR 0.95 (0.87-1.13) 09/01/17 15:34 APTT 37.7 Sec. (24.2-36.6) H 09/01/17 15:34 Thrombin Time 15.0 Sec. (15.1-19.6) L 09/01/17 15:34 Sodium 142 mmol/L (137-145) 09/04/17 06:54 Potassium 4.4 mmol/L (3.6-5.0) 09/04/17 06:54 Chloride 106.9 mmol/L (98-107) 09/04/17 06:54 Carbon Dioxide 20 mmol/L (22-30) L 09/04/17 06:54 Anion Gap 20 mmol/L 09/04/17 06:54 BUN 26 mg/dL (9-20) H 09/04/17 06:54 Creatinine 0.9 mg/dL (0.8-1.5) 09/04/17 06:54 Estimated GFR > 60 ml/min 09/04/17 06:54 BUN/Creatinine Ratio 29 % 09/04/17 06:54 Glucose 111 mg/dL (75-100) H 09/04/17 06:54 POC Glucose 132 (70-105) H 09/01/17 16:39 Calcium 9.2 mg/dL (8.4-10.2) 09/04/17 06:54 Total Bilirubin < 0.20 mg/dL (0.1-1.2) 09/01/17 17:29 Direct Bilirubin < 0.2 mg/dL (0-0.2) 09/01/17 17:29 Indirect Bilirubin 0.0 mg/dL 09/01/17 17:29 AST 17 units/L (5-40) 09/01/17 17:29 ALT 10 units/L (7-56) 09/01/17 17:29 Alkaline Phosphatase 113 units/L (35-129) 09/01/17 17:29 Troponin T < 0.010 ng/mL (0.00-0.029) 09/01/17 15:34 Total Protein 7.8 g/dL (6.3-8.2) 09/01/17 17:29 Albumin 4.0 g/dL (3.9-5) 09/01/17 17:29 Albumin/Globulin Ratio 1.1 % 09/01/17 17:29 Triglycerides 374 mg/dL (2-149) H 09/02/17 13:41 Cholesterol 164 mg/dL (50-199) 09/02/17 13:41 LDL Cholesterol Direct 91 mg/dL (50-130) 09/02/17 13:41 HDL Cholesterol 28 mg/dL (40-59) L 09/02/17 13:41 Cholesterol/HDL Ratio 5.85 % 09/02/17 13:41 Blood Type O POSITIVE 09/01/17 17:29 Antibody Screen Negative 09/01/17 17:29 Crossmatch See Detail 09/01/17 17:29
--- NOTE | 2017-09-04 23:58 | Physician Progress Note ---
SUBJECTIVE: The patient is doing very well. He just had a repeat EGD I believe yesterday. Some brushings or pathologic study were obtained, but no results yet. Dr. Matamoros, the mac developer apparently wanted to keep him here until the pathology is done. The patient anyway is doing very well. He did not have any more evidence to suggest a stroke. PHYSICAL EXAMINATION: VITAL SIGNS: Stable. HEART: Normal. ABDOMEN: Normal. EXTREMITIES: Appeared normal. NEUROLOGIC: Mental status, normal. Cranial nerves normal. Motor examination: Normal. He has improved with the stent on the left side. The speech sounded normal. No long tract signs. ASSESSMENT: This patient had a cerebrovascular accident, right hemispheric, probably branches and secondary to ischemia or hypoxemia because of the severe blood loss. The blood loss was not identified at this time, but because of the findings of a large ulcer, which apparently had gotten bigger, this is therefore the source of the bleeding. He had only a very small right middle cerebellar peduncle nonhemorrhagic infarct. This is not a problem right now. PLAN: 1. Agree with the plan of the mac developer. 2. Definitive management of the ulcer and make sure this is not a neoplastic process. 3. I questioned the baby aspirin and the Protonix whether he is fine to have been given, but this will be checked by the nurse through Dr. Matamoros. 4. The patient will need to have a neurologic followup and consider doing an MRA of the brain to look at the musculature. Overall, condition is good. The patient is neurologically improved and stable. JOB# [id number] BOONE/TERESA
--- NOTE | 2017-09-05 02:06 | Physician Progress Note ---
SUBJECTIVE: Room number A476. TYPE OF ELECTRODE: Electrode montage. TYPE OF RECORDING: Awake, drowsy, and sleep with photic stimulation. CLINICAL INDICATION: The patient had a syncopal episode, possible stroke. DESCRIPTION OF THE RECORDING: The waking background activity consists of well-developed, alpha rhythm, reaching a maximum frequency of 9 Hz, amplitude about 30 microvolts. There is no intrinsic asymmetry in the background. No focal findings, no seizure discharges are present. Photic stimulation is noncontributory. EKG is in normal sinus rhythm. The patient becomes drowsy when to be sleep with development of spindles and slow waves, no activation of any seizure discharge. ELECTROENCEPHALOGRAM IMPRESSION: Normal waking, drowsy, and prolonged sleep. No electrical evidence of cortical disease or seizures. Correlate findings clinically. JOB# [id number] BOONE/TERESA
[2017-09-05 07:59] LABS: Hematocrit 27.1 % (35.5-45.6); Hemoglobin 8.8 gm/dl (11.8-15.2); Mean Corpuscular HGB Conc 33 % (32-34); Mean Corpuscular Hemoglobin 27 pg (28-32); Mean Corpuscular Volume 83 fl (84-94); Platelet Count 455 K/mm3 (140-440); Red Blood Count 3.26 M/mm3 (3.65-5.03); Red Cell Distribution Width 17.9 % (13.2-15.2)
[2017-09-05 08:54] LABS: BUN/Creatinine Ratio 22; Blood Urea Nitrogen 22 mg/dL (9-20); Hemolysis Index 0
[2017-09-05 09:26] LABS: Basophils % (Manual) 0 % (0.0-1.8); Platelet Estimate Consistent w Auto; Total Cells Counted 100
--- NOTE | 2017-09-05 09:41 | Discharge Summary ---
Providers - Providers Date of Admission: 09/01/17 19:16 Attending physician: ROSARIO KRUGER MD 09/01/17 19:16 Occupational Therapy Evaluate and Treat [CONS] Routine Comment: Reason For Exam: Neuro deficits Physical Therapy Evaluation and Treat [CONS] Routine Comment: Reason For Exam: Neuro deficits 09/02/17 06:41 Consult to Physician [CONS] Routine Comment: Consulting Provider: CECELIA JACOB Physician Instructions: Reason For Exam: symptomstic anemia IAW barrets esophagus 09/02/17 09:33 Consult to Physician [CONS] Routine Comment: Consulting Provider: KOSTA BARKER Physician Instructions: Reason For Exam: CVA 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 Pt is unable to provide detailed history. History taken from ED staff, and family members at bedside during exam and interview. As per family, the patient has experienced Left side weakness, confusion, slurred speech over the past 10 days with persistent symptoms over the same time frame. No reports of fever, chills, CP, Palpitations, Falls, Trauma, BRBPR, Seizure, productive cough, skin rash, or recent in contacts. Pt seen and evaluated in ED and found to have symptoms of acute stroke. Code stroke was called. Teleneurology consulted. Pt is outside therapeutic window for TPA/ Pt admitted to telemetry and initiates on CVA protocol. Acute CVA - MRI right medial cerebellar peduncle acute infarct - Patient on aspirin and statin - Neurology consult appreciated Severe anemia - Patient was transfused with 2 units of blood - H/H stable - GI consulted and did EGD was done and preliminary biopsy result showed negative for malignant cells. - Discharged with high dose PPI, iron tablets - GI will follow the patient in the clinic Hypertension - on amlodipine JUSTINA - resolved PT/OT evaluation Patient discharged with home health. Disposition: [id number] HOME [facility] Time spent for discharge: 32 minutes - Discharge Diagnoses (1) ARF (acute renal failure) Status: Acute Qualifiers: Acute renal failure type: with acute tubular necrosis Qualified Code(s): N17.0 - Acute kidney failure with tubular necrosis (2) CVA (cerebral vascular accident) Status: Acute Qualifiers: Precerebral and cerebral artery: middle cerebral artery Laterality of affected vessel: right (3) Gastric ulcer Status: Acute (4) Hemiparesis Status: Acute Qualifiers: Hemiparesis laterality: left nondominant side (5) Left sided numbness Status: Acute (6) Malnutrition Status: Acute Qualifiers: Protein-calorie malnutrition severity: severe (7) Symptomatic anemia Status: Acute Core Measure Documentation - Palliative Care Palliative Care/ Comfort Measures: Not Applicable - Core Measures Any of the following diagnoses?: stroke - Stroke Discharge Requirements Statin for LDL = or >70 mg/dl on DC: Yes Anticoag for atrial fib/atrial flutter: Not Applicable Antithrombotic for ischemic stroke: Yes Exam - Physical Exam Narrative exam: Not in cardiopulmonary distress. The patient appeared well nourished and normally developed. Vital signs as documented. Head exam is unremarkable. No scleral icterus . Neck is without jugular venous distension, thyromegaly, or carotid bruits. Lungs are clear to auscultation. Cardiac exam reveals regular rate and Rhythm. First and second heart sounds normal. No murmurs, rubs or gallops. Abdominal exam reveals normal bowel sounds, no masses, no organomegaly and no aortic enlargement. Extremities are nonedematous and both femoral and pedal pulses are normal. 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 Mild left upper extremity weakness - Constitutional Vitals: Temp Pulse Resp BP Pulse Ox 98.5 F 90 18 127/78 100 09/05/17 03:31 09/05/17 03:31 09/05/17 03:31 09/05/17 03:31 09/05/17 03:31 Plan Activity: advance as tolerated Weight Bearing Status: Weight Bear as Tolerated Diet: low cholesterol, low salt Additional Instructions: Follow at [facility] in 1-2 weeks Follow up with: ANTHONY LORENZ MD [Primary Care Provider] - 3-5 Days CECELIA JACOB MD [Staff Physician] - 14 Days Prescriptions: AtorvaSTATin [Lipitor] 40 mg PO QHS #30 tablet Aspirin [Aspirin BABY CHEW TAB] 81 mg PO QDAY #30 tab.chew Ferrous Sulfate 325 mg PO BID #60 tablet. Gemfibrozil [Lopid] 600 mg PO DAILY #30 tablet Metoprolol [Lopressor TAB] 50 mg PO DAILY #30 tablet Pantoprazole [Protonix TAB] 40 mg PO BID #60 tablet
[2017-09-05] MEDS: BABY ASPIRIN PO SCH (10:26)
[2017-09-05] MEDS: PROTONIX IV SCH (10:27)
[2017-09-05] MEDS: NORVASC PO SCH (10:27)
[2017-09-05 10:42] VITALS: BP 124/72
--- NOTE | 2017-09-05 11:11 | Gastroenterology Progress Note ---
Assessment and Plan - Patient Problems (1) Gastric ulcer Current Visit: Yes Status: Acute Plan to address problem: The biopsies of the ulcer are benign on personal communication with the pathologist, Dr. Linda. OK to go home on high dose PPI. Avoid NSAIDS and advised to stop smoking. Will see him in 2 weeks. Advised patient and sister that he needs repeat EGD in 6-8 to more completely exclude gastric cancer. (2) CVA (cerebral vascular accident) Current Visit: Yes Status: Acute Qualifiers: Precerebral and cerebral artery: middle cerebral artery Laterality of affected vessel: right (3) Symptomatic anemia Current Visit: Yes Status: Acute Subjective Date of service: 09/05/17 Principal diagnosis: History of gastric ulcer, severe anemia Interval history: The patient reports no symptoms today. Objective - Constitutional Vitals: Temp Pulse Resp BP Pulse Ox 97.8 F 94 H 18 124/72 100 09/05/17 08:22 09/05/17 10:00 09/05/17 08:22 09/05/17 08:22 09/05/17 08:22 General appearance: no acute distress - EENT ENT: hearing intact, clear oral mucosa, dentition normal - Respiratory Respiratory effort: normal Respiratory: bilateral: CTA - Cardiovascular Rhythm: regular - Gastrointestinal General gastrointestinal: Present: soft, non-tender, non-distended, normal bowel sounds - Neurologic Neurological: alert and oriented x3 - Labs CBC & Chem 7: 09/05/17 06:29 09/05/17 06:29 Labs: Laboratory Results - last 24 hr 09/05/17 09/05/17 06:29 06:29 WBC 5.2 RBC 3.26 L Hgb 8.8 L Hct 27.1 L MCV 83 L MCH 27 L MCHC 33 RDW 17.9 H Plt Count 455 H [place] % (Auto) Tortilla Maker Add Manual Diff Complete Total Counted 100 Seg Neuts % (Manual) 61.0 Band Neutrophils % 0 Lymphocytes % (Manual) 21.0 Reactive Lymphs % (Man) 3.0 Monocytes % (Manual) 10.0 H Eosinophils % (Manual) 5.0 H Basophils % (Manual) 0 Metamyelocytes % 0 Myelocytes % 0 Promyelocytes % 0 Blast Cells % 0 Nucleated RBC % Not Reportable Seg Neutrophils # Man 3.2 Band Neutrophils # 0.0 Lymphocytes # (Manual) 1.1 L Abs React Lymphs (Man) 0.2 Monocytes # (Manual) 0.5 Eosinophils # (Manual) 0.3 Basophils # (Manual) 0.0 Metamyelocytes # 0.0 Myelocytes # 0.0 Promyelocytes # 0.0 Blast Cells # 0.0 WBC Morphology Not Reportable Hypersegmented Neuts Not Reportable Hyposegmented Neuts Not Reportable Hypogranular Neuts Not Reportable Smudge Cells Not Reportable Toxic Granulation Not Reportable Toxic Vacuolation Not Reportable Dohle Bodies Not Reportable Pelger-Huet Anomaly Not Reportable Christina Rods Not Reportable Platelet Estimate Consistent w auto Clumped Platelets Not Reportable Plt Clumps, EDTA Not Reportable Large Platelets Not Reportable Giant Platelets Not Reportable Platelet Satelliting Not Reportable Plt Morphology Comment Not Reportable RBC Morphology Not Reportable Dimorphic RBCs Not Reportable Polychromasia Not Reportable Hypochromasia Not Reportable Poikilocytosis Not Reportable Anisocytosis Not Reportable Microcytosis Not Reportable Macrocytosis Not Reportable Spherocytes Not Reportable Pappenheimer Bodies Not Reportable Sickle Cells Not Reportable Target Cells Not Reportable Tear Drop Cells Not Reportable Ovalocytes Not Reportable Helmet Cells Not Reportable [place] Bodies Not Reportable Loop Rings Not Reportable [place] Cells Not Reportable Bite Cells Not Reportable Crenated Cell Not Reportable Elliptocytes Not Reportable Acanthocytes (Spur) Not Reportable Rouleaux Not Reportable Hemoglobin C Crystals Not Reportable Schistocytes Not Reportable Malaria parasites Not Reportable Bogdan Bodies Not Reportable Hem Pathologist Commnt No Sodium 140 Potassium 4.1 Chloride 105.2 Carbon Dioxide 16 L Anion Gap 23 BUN 22 H Creatinine 1.0 Estimated GFR > 60 BUN/Creatinine Ratio 22 Glucose 111 H Calcium 9.0
== END 2017-09-05 11:12 | disposition home or self-care (01) | DRG 64 ==
LOC: ED 15:11 → 4A 19:16
PROVIDERS: ADMIT Internal Medicine; ATTEND Internal Medicine
PROC: 30233N1 Transfusion of Nonautologous Red Blood Cells into Peripheral Vein, Percutaneous Approach (ICD-10-PCS; 2017-09-02)
PROC: 0DB78ZX Excision of Stomach, Pylorus, Via Natural or Artificial Opening Endoscopic, Diagnostic (ICD-10-PCS; principal; 2017-09-04)
DX: I63.9 Cerebral infarction, unspecified (principal); G93.40 Encephalopathy, unspecified; N17.9 Acute kidney failure, unspecified; E46 Unspecified protein-calorie malnutrition; Z68.1 Body mass index [BMI] 19.9 or less, adult; G81.94 Hemiplegia, unspecified affecting left nondominant side; F17.200 Nicotine dependence, unspecified, uncomplicated; I10 Essential (primary) hypertension; D64.9 Anemia, unspecified; K25.9 Gastric ulcer, unspecified as acute or chronic, without hemorrhage or perforation; Z71.6 Tobacco abuse counseling; Z82.49 Family history of ischemic heart disease and other diseases of the circulatory system
CPT/HCPCS: 36415; 70450; 70544; 70551; 80048; 80061; 80074; 82962; 84484; 85007; 85025; 85027; 85610; 85670; 85730; 86850; 86900; 86901; 86920; 88305; 88342; 93005; 93010; 93306; 93880; 94760; 95819; A9270-GY; C9113; G8978-GP; G8979-GP; G8987-GO; G8988-GO; G8989-GO; J2405; J2704; J7030; J7050; P9016

== ENCOUNTER 2017-09-21 09:54 | Emergency (ER) | payer OTHER ==
[2017-09-21] MEDS ORDERED: TYLENOL PO PRN (10:43)
[2017-09-21] MEDS ORDERED: NACL 0.9% 1000 ML IV ONE (10:43)
[2017-09-21] MEDS ORDERED: VANCOMYCIN 1,000 MG in NACL 0.9% 500 ML 500 ML IV ONE (10:43)
--- NOTE | 2017-09-21 10:47 | Emergency Department Report ---
ED General Adult HPI - General Chief complaint: Weakness Stated complaint: PAIN IN HANDS AND FEET Time Seen by Provider: 09/21/17 10:22 Source: patient, RN notes reviewed, old records reviewed Mode of arrival: Ambulatory Limitations: No Limitations - History of Present Illness Initial comments: This is a 61-year-old male who is unknown to this provider previously. His past medical history includes hypertension, malnutrition, Britton's esophagus, nicotine dependence, recent admission to the hospital for right medial cerebellar peduncle acute infarct, currently on aspirin and a statin, anemia, acute kidney injury. The patient presents to the ER with a complaint of nontraumatic left wrist pain , and nontraumatic right lower extremity pain and dorsal right foot pain. This pain has been present for the past 2-3 days. Patient reports that it is sharp. Pain increases with palpation and range of motion of the right foot. He reports that his left hand is more swollen and painful. It has been present since his recent hospitalization. He denies headache, neck pain, chest pain, abdominal pain, shortness of breath, urinary symptoms. He is not sure if he had any fevers. -: Gradual Location: left (left upper extremity), right (right lower extremity) Quality: burning, stabbing, aching Consistency: intermittent Improves with: rest Worsens with: movement Associated Symptoms: malaise, weakness. denies: confusion, chest pain, cough, diaphoresis - Related Data Home Medications Medication Instructions Recorded Confirmed Last Taken Gabapentin [Neurontin] 300 mg PO BID 09/04/17 09/21/17 Unknown Previous Rx's Medication Instructions Recorded Last Taken Type Aspirin [Aspirin BABY CHEW TAB] 81 mg PO QDAY #30 tab.chew 09/05/17 Unknown Rx AtorvaSTATin [Lipitor] 40 mg PO QHS #30 tablet 09/05/17 Unknown Rx Ferrous Sulfate 325 mg PO BID #60 tablet.dr 09/05/17 Unknown Rx Gemfibrozil [Lopid] 600 mg PO DAILY #30 tablet 09/05/17 Unknown Rx Metoprolol [Lopressor TAB] 50 mg PO DAILY #30 tablet 09/05/17 Unknown Rx Pantoprazole [Protonix TAB] 40 mg PO BID #60 tablet 09/05/17 Unknown Rx Cephalexin [Keflex] 500 mg PO Q8HR #30 cap 09/21/17 Unknown Rx Colchicine 0.6 mg PO Q12H #14 tablet 09/21/17 Unknown Rx Indomethacin [Indocin] 50 mg RC BID #10 supp.rect 09/21/17 Unknown Rx Prednisone [predniSONE 10 mg 10 mg PO .TAPER #1 tab.ds.pk 09/21/17 Unknown Rx (6-Day Pack, 21 Tabs)] Allergies Allergy/AdvReac Type Severity Reaction Status Date / Time No Known Allergies Allergy Verified 09/21/17 09:55 ED Review of Systems ROS: Stated complaint: PAIN IN HANDS AND FEET Other details as noted in HPI Constitutional: malaise Eyes: denies: vision change ENT: denies: hearing loss Respiratory: denies: cough Cardiovascular: denies: chest pain Gastrointestinal: denies: abdominal pain Genitourinary: denies: dysuria Musculoskeletal: joint swelling, arthralgia, myalgia Skin: lesions Neurological: weakness ED Past Medical Hx - Past Medical History Hx Hypertension: Yes Hx CVA: Yes Hx Heart Attack/AMI: No Hx Liver Disease: No Hx Renal Disease: No Hx Sickle Cell Disease: No Hx Seizures: No Hx Asthma: No Hx COPD: No Additional medical history: Epigastric pain, Barretts esophagus, H-pylori - Surgical History Hx Pacemaker: No Hx Internal Defibrillator: No - Social History Smoking Status: Never Smoker Substance Use Type: None - Medications Home Medications: Home Medications Medication Instructions Recorded Confirmed Last Taken Type Gabapentin [Neurontin] 300 mg PO BID 09/04/17 09/21/17 Unknown History Aspirin [Aspirin BABY CHEW TAB] 81 mg PO QDAY #30 tab.chew 09/05/17 09/21/17 Unknown Rx AtorvaSTATin [Lipitor] 40 mg PO QHS #30 tablet 09/05/17 09/21/17 Unknown Rx Ferrous Sulfate 325 mg PO BID #60 tablet.dr 09/05/17 09/21/17 Unknown Rx Gemfibrozil [Lopid] 600 mg PO DAILY #30 tablet 09/05/17 09/21/17 Unknown Rx Metoprolol [Lopressor TAB] 50 mg PO DAILY #30 tablet 09/05/17 09/21/17 Unknown Rx Pantoprazole [Protonix TAB] 40 mg PO BID #60 tablet 09/05/17 09/21/17 Unknown Rx Cephalexin [Keflex] 500 mg PO Q8HR #30 cap 09/21/17 Unknown Rx Colchicine 0.6 mg PO Q12H #14 tablet 09/21/17 Unknown Rx Indomethacin [Indocin] 50 mg RC BID #10 supp.rect 09/21/17 Unknown Rx Prednisone [predniSONE 10 mg 10 mg PO .TAPER #1 tab.ds.pk 09/21/17 Unknown Rx (6-Day Pack, 21 Tabs)] ED Physical Exam - General Limitations: No Limitations General appearance: alert, in no apparent distress - Head Head exam: Present: atraumatic, normocephalic - Eye Eye exam: Present: normal appearance, EOMI. Absent: nystagmus - ENT ENT exam: Present: normal orophraynx, mucous membranes moist - Neck Neck exam: Present: normal inspection, full ROM - Respiratory Respiratory exam: Present: normal lung sounds bilaterally. Absent: respiratory distress - Cardiovascular Cardiovascular Exam: Present: normal rhythm, tachycardia, normal heart sounds. Absent: systolic murmur, diastolic murmur, rubs, gallop - GI/Abdominal GI/Abdominal exam: Present: soft, normal bowel sounds. Absent: distended, tenderness, guarding, rebound, rigid, pulsatile mass - Rectal Rectal exam: Present: normal inspection, normal rectal tone, heme (-) stool, other (chaperonne: bay mckeon) - Extremities Exam Extremities exam: Present: full ROM, tenderness, normal capillary refill, other (on the dorsal aspect of the right foot there is a punctate erythematous lesion which is tender with surrounding erythema. There is no crepitus. Compartments soft. 2+ pulses noted in the upper, lower extremities.). Absent: pedal edema, joint swelling, calf tenderness - Back Exam Back exam: Present: normal inspection - Neurological Exam Neurological exam: Present: alert, oriented X3, CN II-XII intact, motor sensory deficit (there is 4 out of 5 strength left upper extremity. 5 out of 5 strength bilateral lower extremities, and 5 out of 5 strength right upper extremity. Sensation is intact to light touch in the 4 extremities.) - Psychiatric Psychiatric exam: Present: normal affect, normal mood - Skin Skin exam: Present: warm, rash ED Course Vital Signs 09/21/17 09/21/17 09/21/17 09:55 10:19 10:30 Temperature 97.7 F Pulse Rate 121 H 116 H 115 H Respiratory 18 16 21 Rate Blood Pressure 172/95 212/95 O2 Sat by Pulse 99 95 99 Oximetry 09/21/17 09/21/17 09/21/17 10:34 10:45 11:03 Temperature 100.7 F H Pulse Rate 111 H Respiratory 14 16 Rate Blood Pressure 178/100 O2 Sat by Pulse 99 Oximetry 09/21/17 09/21/17 09/21/17 11:31 11:45 12:00 Temperature Pulse Rate 102 H 100 H 95 H Respiratory 15 19 16 Rate Blood Pressure 178/100 176/95 173/90 O2 Sat by Pulse 98 98 100 Oximetry 09/21/17 09/21/17 09/21/17 12:15 12:30 12:45 Temperature Pulse Rate 98 H 94 H 90 Respiratory 27 H 15 12 Rate Blood Pressure 175/88 164/84 157/78 O2 Sat by Pulse 98 99 99 Oximetry 09/21/17 09/21/17 09/21/17 13:00 13:15 13:30 Temperature Pulse Rate 90 102 H 97 H Respiratory 14 19 17 Rate Blood Pressure 163/82 139/81 138/74 O2 Sat by Pulse 98 99 98 Oximetry 09/21/17 13:45 Temperature Pulse Rate 93 H Respiratory 15 Rate Blood Pressure 137/69 O2 Sat by Pulse 97 Oximetry - Reevaluation(s) Reevaluation #1: 09/21/17 12:29 Differential diagnosis, including but not limited to: Endocarditis, bacteremia, pericarditis, myocarditis, urinary tract infection, pneumonia Assessment and plan: 61-year-old male with fever, tachycardia, tachypnea, meets sepsis criteria. Recently had MRI confirmed stroke. Head CT and thoracic echocardiogram which demonstrated regurg and the mitral valve, no atrial septal defect or patent foramen ovale. He has a punctate erythematous lesion on the dorsal aspect of his right foot. Given fever, tachycardia, punctate lesion, concerning for possible septic emboli. He will be treated with vancomycin for empiric endocarditis, a right lower extremity DVT study was negative, and he will be admitted to the medical service for further evaluation and management. The Hospital physician has been paged to arrange admission. Reevaluation #2: 09/21/17 14:[address] Kaufman. ED Medical Decision Making - Lab Data Result diagrams: 09/21/17 11:03 09/21/17 11:03 Vital Signs 09/21/17 09/21/17 09/21/17 09:55 10:19 10:30 Temperature 97.7 F Pulse Rate 121 H 116 H 115 H Respiratory 18 16 21 Rate Blood Pressure 172/95 212/95 O2 Sat by Pulse 99 95 99 Oximetry 09/21/17 09/21/17 10:34 11:03 Temperature 100.7 F H Pulse Rate Respiratory 16 Rate Blood Pressure O2 Sat by Pulse Oximetry Lab Results 09/21/17 09/21/17 09/21/17 Range/Units 11:03 11:03 11:03 WBC 10.4 (4.5-11.0) K/mm3 RBC 3.51 L (3.65-5.03) M/mm3 Hgb 9.4 L (11.8-15.2) gm/dl Hct 28.8 L (35.5-45.6) % MCV 82 L (84-94) fl MCH 27 L (28-32) pg MCHC 33 (32-34) % RDW 18.8 H (13.2-15.2) % Plt Count 471 H (140-440) K/mm3 Lymph % (Auto) 8.2 L (13.4-35.0) % Nicholas % (Auto) 11.9 H (0.0-7.3) % Eos % (Auto) 0.9 (0.0-4.3) % Baso % (Auto) 1.1 (0.0-1.8) % Lymph # 0.9 L (1.2-5.4) K/mm3 Nicholas # 1.2 H (0.0-0.8) K/mm3 Eos # 0.1 (0.0-0.4) K/mm3 Baso # 0.1 (0.0-0.1) K/mm3 Seg Neutrophils % 77.9 H (40.0-70.0) % Seg Neutrophils # 8.1 H (1.8-7.7) K/mm3 APTT (24.2-36.6) Sec. Sodium (137-145) mmol/L Potassium (3.6-5.0) mmol/L Chloride (98-107) mmol/L Carbon Dioxide (22-30) mmol/L Anion Gap mmol/L BUN (9-20) mg/dL Creatinine (0.8-1.5) mg/dL Estimated GFR ml/min BUN/Creatinine Ratio % Glucose (75-100) mg/dL Lactic Acid 0.80 (0.7-2.0) mmol/L Calcium (8.4-10.2) mg/dL Total Bilirubin (0.1-1.2) mg/dL AST (5-40) units/L ALT (7-56) units/L Alkaline Phosphatase (35-129) units/L Total Creatine Kinase (55-170) units/L Total Protein (6.3-8.2) g/dL Albumin (3.9-5) g/dL Albumin/Globulin Ratio % Blood Type O POSITIVE 09/21/17 09/21/17 09/21/17 Range/Units 11:03 11:03 11:03 WBC (4.5-11.0) K/mm3 RBC (3.65-5.03) M/mm3 Hgb (11.8-15.2) gm/dl Hct (35.5-45.6) % MCV (84-94) fl MCH (28-32) pg MCHC (32-34) % RDW (13.2-15.2) % Plt Count (140-440) K/mm3 Lymph % (Auto) (13.4-35.0) % Nicholas % (Auto) (0.0-7.3) % Eos % (Auto) (0.0-4.3) % Baso % (Auto) (0.0-1.8) % Lymph # (1.2-5.4) K/mm3 Nicholas # (0.0-0.8) K/mm3 Eos # (0.0-0.4) K/mm3 Baso # (0.0-0.1) K/mm3 Seg Neutrophils % (40.0-70.0) % Seg Neutrophils # (1.8-7.7) K/mm3 APTT 41.2 H (24.2-36.6) Sec. Sodium 135 L (137-145) mmol/L Potassium 3.6 (3.6-5.0) mmol/L Chloride 95.6 L (98-107) mmol/L Carbon Dioxide 23 (22-30) mmol/L Anion Gap 20 mmol/L BUN 18 (9-20) mg/dL Creatinine 1.0 (0.8-1.5) mg/dL Estimated GFR > 60 ml/min BUN/Creatinine Ratio 18 % Glucose 125 H (75-100) mg/dL Lactic Acid 0.90 (0.7-2.0) mmol/L Calcium 9.7 (8.4-10.2) mg/dL Total Bilirubin 0.30 (0.1-1.2) mg/dL AST 22 (5-40) units/L ALT 8 (7-56) units/L Alkaline Phosphatase 105 (35-129) units/L Total Creatine Kinase 62 (55-170) units/L Total Protein 8.6 H (6.3-8.2) g/dL Albumin 4.0 (3.9-5) g/dL Albumin/Globulin Ratio 0.9 % Blood Type - EKG Data -: EKG Interpreted by Me - EKG Data 09/21/17 12:32 Sinus tachycardia, 110 beats per minutes, high left ventricular voltage, right bundle branch block, left axis deviation, atrial enlargement, borderline left anterior fascicular block, with pain to prior EKG, nonspecific changes taking place. - Radiology Data Radiology results: report reviewed, image reviewed X-ray of the chest is negative. Right lower extremity DVT study is negative. Critical care attestation.: If time is entered above; I have spent that time in minutes in the direct care of this critically ill patient, excluding procedure time. ED Disposition Clinical Impression: SIRS (systemic inflammatory response syndrome) Disposition: OP ADMIT IP TO THIS HOSP Is pt being admited?: Yes Condition: Good Instructions: Dehydration (ED), Acute Gouty Arthritis (ED) Prescriptions: Cephalexin [Keflex] 500 mg PO Q8HR #30 cap Colchicine 0.6 mg PO Q12H #14 tablet Indomethacin [Indocin] 50 mg RC BID #10 supp.rect Prednisone [predniSONE 10 mg (6-Day Pack, 21 Tabs)] 10 mg PO .TAPER #1 tab.ds.pk Referrals: PRIMARY CARE, [Primary Care Provider] - 3-5 Days
[2017-09-21] MEDS ORDERED: NACL 0.9% 500 ML 500 ML ONE (10:49)
--- NOTE | 2017-09-21 11:17 | XRay Report ---
CHEST ONE VIEW INDICATION: Sepsis. COMPARISON: None similar. FINDINGS: Portable, single, frontal chest radiograph demonstrates normal cardiomediastinal silhouette. Mild aortic knob calcifications. Clear lungs. Thoracic spondylosis. Extrinsic EKG leads. CONCLUSION: No acute disease in the chest. Thank you for the opportunity to participate in this patient's care.
[2017-09-21 11:24] LABS: Basophils # (Auto) 0.1 K/mm3 (0.0-0.1); Basophils % (Auto) 1.1 % (0.0-1.8); Eosinophils # (Auto) 0.1 K/mm3 (0.0-0.4); Eosinophils % (Auto) 0.9 % (0.0-4.3); Hematocrit 28.8 % (35.5-45.6); Hemoglobin 9.4 gm/dl (11.8-15.2); Lymphocytes # (Auto) 0.9 K/mm3 (1.2-5.4); Lymphocytes % (Auto) 8.2 % (13.4-35.0); Mean Corpuscular HGB Conc 33 % (32-34); Mean Corpuscular Hemoglobin 27 pg (28-32); Mean Corpuscular Volume 82 fl (84-94); Monocytes # (Auto) 1.2 K/mm3 (0.0-0.8); Monocytes % (Auto) 11.9 % (0.0-7.3); Platelet Count 471 K/mm3 (140-440); Red Blood Count 3.51 M/mm3 (3.65-5.03); Red Cell Distribution Width 18.8 % (13.2-15.2)
[2017-09-21 11:39] LABS: Alanine Aminotransferase 8 units/L (7-56); BUN/Creatinine Ratio 18; Blood Urea Nitrogen 18 mg/dL (9-20); Calcium 9.7 mg/dL (8.4-10.2); Hemolysis Index 0
[2017-09-21] MEDS ORDERED: VANCOMYCIN/NS 1 GM/250 ML 1 GM/250 ML BAG IV ONE (12:00)
[2017-09-21] MEDS ORDERED: NON-FORMULARY (Ferrous Sulfate [Ferrous Sulfate] 325 MG) PO SCH (12:45)
[2017-09-21 12:51] LABS: Bilirubin,Urine NEG (Negative); Blood,Urine NEG (Negative); Color,Urine Yellow (Yellow); Protein,Urine <15 mg/dL mg/dL (Negative); Urobilinogen,Urine < 2.0 mg/dL (<2.0); WBC,Urine < 1.0 /HPF (0.0-6.0)
[2017-09-21] MEDS ORDERED: PROTONIX PO SCH (13:00)
[2017-09-21] MEDS ORDERED: NEURONTIN PO SCH (13:00)
[2017-09-21] MEDS ORDERED: LOPID PO SCH (13:00)
[2017-09-21] MEDS ORDERED: LOPRESSOR PO SCH (13:00)
--- NOTE | 2017-09-21 13:21 | Event Note ---
Date: 09/21/17 Small red lesion on Rt Dorsum foot L wrist swollen Patient has Hx of Gout Dx Acute Gout discharge on Keflex Colchicine and Prednisone o
[2017-09-21] MEDS ORDERED: FEOSOL PO SCH (14:00)
[2017-09-21 15:43] VITALS: BP 133/72
--- NOTE | 2017-09-24 14:37 | Vascular Lab Report ---
Right Lower Extremity Venous Duplex Study: Reason for Exam: Pain and swelling of the right lower extremity. Comments on the Right: All veins visualized are freely compressible without evidence of internal echogenicity. Flow is spontaneous and phasic throughout. No evidence of acute or chronic thrombus is seen in any of the vessels visualized. A soft tissue change in the right knee area is consistent with a Donato's cyst. Comments on the Left: A limited duplex study was done of the proximal veins of the left lower extremity. All veins visualized are freely compressible without evidence of internal echogenicity. Flow is spontaneous and phasic throughout. No evidence of acute or chronic thrombus is seen in any of the vessels visualized. Impression: No evidence of acute or chronic deep venous thrombosis in the right lower extremity. A soft tissue change in the right knee area is consistent with a Donato's cyst.
== END 2017-09-21 15:45 | disposition admitted as inpatient to this hospital (09) ==
LOC: ED 09:54
DX: A41.9 Sepsis, unspecified organism (principal); R65.10 Systemic inflammatory response syndrome (SIRS) of non-infectious origin without acute organ dysfunction; I10 Essential (primary) hypertension; Z86.73 Personal history of transient ischemic attack (TIA), and cerebral infarction without residual deficits; Z79.82 Long term (current) use of aspirin
CPT/HCPCS: 36415; 71045; 80053; 81001; 82140; 82271; 82550; 84484; 85025; 85730; 86850; 86900; 86901; 87040; 87086; 93005; 93010; 93971; 96365; 96375; 99285; J3370; J7030; J7040